=== PATIENT | male | born 1955 | race African-American/Black ===

== ENCOUNTER 2020-08-13 17:09 | Inpatient (IN) | payer BC ==
--- OUTSIDE RECORDS SUMMARY | 2020-08-13 17:12 | XMS REPORT | Continuity of Care Document ---
:[address] [facility] t Address [address] [place] [address] Care Team Providers Name Role Phone Jemma JETER Attending Clinician Lm JETER Attending Clinician Sampson Attending Clinician Sampson Admitting Clinician Payers Payer Name Policy Type Policy Number Effective Date Expiration Date S ource Problems Condition Condition Condition Status Onset Resolution Last Treating Co mments Source Name Details Category Date Date Treatment Clinician Date COPD Diagnosis Active 2017-08-18 Mem oria EXACERBATI 3-10 21:49:00 l ON COPD 00:00: Comfort EXACERBATI 00 ON Active 8 [facility] [place] Essential Problem 2017-11-21 Me moria (primary) 13:07:13 l hypertensi [place] n on Essential (primary) hypertensi on 11/21/2017 [facility] custodial Problem 2017-11-21 Me moria (current) 13:07:13 l use of Long [place] oral term hypoglycem (current) ic drugs use of oral hypoglycem ic drugs 11/21/2017 [facility] CHRONIC Diagnosis Active 2017-08-18 Me moria OBSTRUCTIV 21:49:00 l E CHRONIC [place]aim PULMONARY OBSTRUCTIV DISEASE, U E PULMONARY DISEASE, U [facility] Problem 2017-11-21 Memor ia kidney 13:07:13 l failure, Acute Comfort unspecifie kidney d failure, unspecifie d 11/21/2017 [facility] Type 2 Problem 2017-11-21 Memor ia diabetes 13:07:13 l mellitus Type 2 Austin n without diabetes complicati mellitus ons without complicati ons 11/21/2017 [facility] Hyperlipid Problem 2017-11-21 M emoria emia, 13:07:13 l unspecifie [place] n d Hyperlipid emia, unspecifie d 11/21/2017 [facility] Nicotine Problem 2017-11-21 Mem oria dependence 13:07:13 l , Nicotine Austin n cigarettes dependence , , uncomplica cigarettes derik , uncomplica derik 11/21/2017 [facility] Anemia, Problem 2017-11-21 Deon luiz unspecifie 13:07:13 l d Anemia, Haim unspecifie d 11/21/2017 [facility] History of Past Illness Condition Condition Condition Status Onset Resolution Last Treating Co mments Source Name Details Category Date Date Treatment Clinician Date Chronic Problem 2017-2017-11-21 2017-11-21 Memoria obstructiv 3- 13:07:13 13:07:13 l e Chronic 03:23: Haim pulmonary obstructiv 01 disease e with pulmonary (acute) disease exacerbati with on (acute) exacerbati on 08/25/2017 11/21/2017 [facility] Allergies, Adverse Reactions, Alerts Allergy Allergy Status Severity Reaction(s) Onset Inactive Treating Comm ents Source Name Type Date Date Clinician No Known DA Active U 2013-06 [facility] 07-12 [facility] Social History Social Habit Start Date Stop Date Quantity Comments Source Sex Assigned At [facility] Social History 2017-08-13 2017-08-13 [facility] александр 17:52:31 17:52:31 Medications Ordered Filled Start Stop Current Ordering Indication Dosage Frequency Signature Comments Components Source Medication Medication Date Date Medication? Clinician (SIG) Name Name Acetaminoph No See Memori a en 325 MG / 3-12 Instructio l Hydrocodone 19:26: ns, PRN Her banks Bitartrate 00 for pain, 5 MG Oral 1 tab PO Tablet Q4-6H prn [[place] pain, # 10 5/325] tab, 0 Refill(s) Linagliptin Yes 5 mg = 1 Me moria 5 MG Oral 3-12 tab, PO, l Tablet 18:03: Daily, # Comfort [Tradjenta] 00 30 tab, 3 Refill(s) Levofloxaci No 750 mg = 1 Memoria n 750 MG 3-12 tab, PO, l Oral Tablet 18:01: Q24H, X 4 H ermann [Levaquin] 00 day, # 4 tab, 0 Refill(s) predniSONE No See Memoria 10 mg oral 3-12 Special l tablet 18:01: Instructio Elena nn 00 ns, PO, Daily, 16 day regimen: 1st week - 40 mg (4 tabs) daily x 4 days, 2nd week - 30 mg (3 tabs) daily x 4 days, 3rd week - 20 mg (2 tabs) daily x 4days, 4th week - 10 mg (1 tab) daily x 4 days then stop. X16 days, #42 Tabs, X... Nebulizer Yes 1 ea, Memoria Mask Adult 3-12 MISC, PRN, l Misc/Other 18:01: PRN As Elena nn 00 directed by physician, # 12 ea, 0 Refill(s) Nebulizer Yes 1 ea, Memoria 3-12 MISC, l 18:01: ONCALL, # Haim 00 1 ea, 0 Refill(s) Albuterol Yes 3 mL, NEB, Me moria 0.833 MG/ML 312 RQ6H, PRN l / 18:01: as needed Haim Ipratropium 00 for [place] shortness 0.167 MG/ML of breath Inhalant or Solution wheezing, # 180 mL, 2 Refill(s) methylPREDN No Notes: Deon luiz ISolone 3-12 (Same l SODium 02:00: as:Solu-ME Elena nn SUCCinate 00 DROL, A-Methapre d) NS (Bolus) No 500 mL, Deon luiz IV 3-11 500 ml/hr, l 19:06: Infuse Haim 00 Over: 1 hr, Route: IV, 500, Drug form: INJ, ONCE, Priority: STAT, Dosing Weight 128.438 kg, Start date: 08/14/17 14:06:00 CDT, Stop date: 08/14/17 14:06:00 CDT Hydrochloro No Notes: Deon luiz thiazide 3-11 (Same as: l 14:00: Hydrodiuri Haim 00 l) With food. Losartan No Notes: Memoria 3-11 (Same as: l 03:00: Cozaar) Zyrtec No Notes: Memoria 3-11 (Same As: l 03:00: Zyrtec) Amlodipine No Notes: Memor ia 3-11 (Same as: l 03:00: Norvasc) atorvastati No Notes: Deon luiz n 3-11 (Same as: l 03:00: Lipitor) Metformin No Notes: Memori a 3-10 (Same as: l 22:30: Glucophage ) Take with meal methylPREDN No Notes: Deon luiz ISolone 3-10 (Same l SODium 22:00: as:Solu-ME Elena nn SUCCinate 00 DROL, A-Methapre d) Albuterol No Notes: Memori a 0.833 MG/ML 3-10 (Same as: l / 20:00: Duoneb) Ipratropium 00 [place] 0.167 MG/ML Inhalant Solution Symbicort No Notes: Memori a 160/4.5 3-10 (Same as: l inhalation 19:08: Symbicort) H ermann aerosol 00 WASTE: with Aerosol - adapter Return to Pharmacy albuterol No Notes: Memori a 90 mcg/inh 3-10 Same as: l inhalation 18:39: Ventolin Her banks aerosol 00 HFA WASTE: Aerosol - Return to Pharmacy Zyrtec Yes 10 mg, PO, Memor ia 3-10 Bedtime, 0 l 18:24: Refill(s) Amlodipine Yes 10 mg, PO, M emoria 3-10 Bedtime, 0 l 18:24: Refill(s) Hydrochloro 2018-0 No 50 mg, PO, Memoria thiazide 3-10 Bedtime, 0 l 18:24: Refill(s) Haim 00 Symbicort Yes 2 puff, Memor ia 160/4.5 3-10 INHALATION l inhalation 18:24: , BID, 0 Her banks aerosol 00 Refill(s) with adapter atorvastati Yes 40 mg = 1 M emoria n 40 mg 3-10 tab, PO, l oral tablet 18:24: Bedtime, 0 Comfort 00 Refill(s) albuterol Yes 2 puff, Memor ia 90 mcg/inh 3-10 INHALATION l inhalation 18:24: , Q4H, PRN H ermann aerosol 00 Shortness of breath, 0 Refill(s) Losartan No 100 mg, Memori a 3-10 PO, l 18:24: Bedtime, 0 Haim 00 Refill(s) Metformin No 500 mg, Memor ia 3-10 PO, Before l 18:24: Dinner, 0 Comfort 00 Refill(s) Azithromyci No 500 mg, Mem oria n 3-10 Route: l 18:00: IVPB, Haim 00 [id number], kg, Start date: 08/13/17 12:00:00 PAGEANT DIRECTOR, Duration: 3 day, Stop date: 08/15/17 12:00:00 CDT, ABX Indication : Non-PNA Respirator y Tract Infection Ceftriaxone No 1 gm, Memor ia 3-10 Route: l 18:00: IVPB, Comfort 00 [id number], kg, Start date: 08/13/17 12:00:00 PAGEANT DIRECTOR, Duration: 5 day, Stop date: 08/17/17 12:00:00 CDT, ABX Indication : Non-PNA Respirator y Tract Infection Levaquin No Notes: Memoria 3-10 (Same l 18:00: as:Levaqui Comfort 00 n) Symbicort No Notes: Memori a 160/4.5 3-10 (Same as: l inhalation 17:22: Symbicort) H ermann aerosol 00 WASTE: with Aerosol - adapter Return to Pharmacy Insulin No Notes: Memoria Lispro 3-10 (Same as: l 17:21: Humalog ) Comfort 00 Roll in palms of hands gently; Do not shake `vigorousl y. "Single Patient Use Only " WASTE: F/P - Black; E - Municipal Trash Bin Stable for 28 days at room temperatur e. Expires in days from ____Date Glucagon 2017-0 No 1 mg, Memoria 3-10 Route: IM, l 17:21: Drug form: Haim 00 PDR/INJ, PRN, kg, PRN Blood Glucose Results, Start date: 08/13/17 11:21:00 PAGEANT DIRECTOR, Duration: 30 day, Stop date: 09/12/17 12:20:00 CDT Dextrose 2017- No 12.5 gm, Memor ia 50% Syringe 3-10 25 mL, l 17:21: Route: Comfort IVP, Drug Form: INJ, kg, PRN, PRN Blood Glucose Results, Start date: 08/13/17 11:21:00 PAGEANT DIRECTOR, Duration: 30 day, Stop date: 09/12/17 12:20:00 CDT Albuterol 2017- No Notes: SEE Me moria 0.83 MG/ML 3-10 RT l Inhalant 17:20: DOCUMENTAT Her banks Solution 00 ION (Same as: Proventil) Ondansetron No Notes: Deon luiz 3-10 (Same as: l 17:17: Zofran) Comfort 00 MEDICATION WASTE Product Size: 4 mg Product Wasted: ___ mg Acetaminoph No Notes: Do M emoria en 3-10 not exceed l 17:17: 4 gm/day. Comfort 00 (Same as: Tylenol) Acetaminoph No Notes: Deon luiz en 325 MG / 3-10 (Same as: l Hydrocodone 17:17: [place] Elena nn Bitartrate 00 325/5) Do 5 MG Oral not exceed Tablet 4gm/day of acetaminop hen. Vital Signs Vital Name Observation Time Observation Value Comments Source Temperature Oral (F) 2017-08-15 16:15:00 98.3 F [facility] [place] Systolic (mm Hg) 2017-08-15 16:15:00 Deon rial Comfort Diastolic (mm Hg) 2017-08-15 16:15:00 Mem orial Comfort Respitory Rate 2017-08-15 16:15:00 Memori al Comfort Heart Rate 2017-08-15 16:15:00 [facility] Comfort Respitory Rate 2017-08-15 13:49:00 Memori al [place] Systolic (mm Hg) 2017-08-15 13:49:00 Deon rial Comfort Diastolic (mm Hg) 2017-08-15 13:49:00 Mem orial Comfort Heart Rate 2017-08-15 13:49:00 Memorial Comfort Temperature Oral (F) 2017-08-15 13:49:00 98.8 F [facility] [place] Respitory Rate 2017-08-15 13:09:00 Memori al Comfort Temperature Oral (F) 2017-08-15 10:04:00 98.1 F [facility] [place] Heart Rate 2017-08-15 10:04:00 [facility] Comfort Systolic (mm Hg) 2017-08-15 10:04:00 Deon rial Haim Diastolic (mm Hg) 2017-08-15 10:04:00 Mem orial Comfort BMI Calculated 2017-08-13 17:30:00 Memori al [place] Weight 2017-08-13 17:30:00 [facility] Comfort Height 2017-08-13 17:30:00 177.8 cm [facility] Procedures This patient has no known procedures. Plan of Care Planned Activity Planned Date Details Comments Source Future Scheduled 2021-11-[address] [facility] - Test 00:00:00 (procedure) [code = [facility] [id number]] Future Scheduled 2020-02-05 INFLUENZA VACCINE (#1) [facility] - Test 00:00:00 [code = INFLUENZA Medical Ce nter VACCINE (#1)] Future Scheduled 2019 PNEUMOCOCCAL 65+ YRS [facility] - Test 00:00:00 (1 of 1 - Medical Center [id number] PCV13) [code = PNEUMOCOCCAL 65+ YRS (1 of 1 - [id number] PCV13)] Future Scheduled [address] [facility] - Test 00:00:00 malignant neoplasm of Medica l Center colon (procedure) [code = 586712950] Encounters Start End Encounter Admission Attending Care Care Encounter Source Date/Time Date/Time Type Type Clinicians Facility Department ID 2019-01-17 2019-01-17 Office Daryl Easton BCJavon [id number] 10:22:48 10:52:48 Visit AMBULATOR [id number] Y [id number] 2019-01-17 2019-01-17 Office FREEDOM Amato [id number] 09:48:53 10:21:37 Visit Noah AMBULATOR [id number] Y [id number] 2017-08-13 2017-08-[address] [id number] 10:56:00 15:10:00 Jem Morley Results Test Description Test Time Test Comments Results Result Comments Source ELECTROLYTES 2017-08-15 103 [facility] Her banks 10:02:00 ELECTROLYTES 2017-08-15 4.1 [facility] 10:02:00 ELECTROLYTES 2017-08-15 9.2 [facility] 10:02:00 ELECTROLYTES 2017-08-15 32 [facility] 10:02:00 ELECTROLYTES 2017-08-15 9.1 [facility] 10:02:00 ELECTROLYTES 2017-08-15 50 [facility] 10:02:00 ELECTROLYTES 2017-08-15 1.65 [facility] 10:02:00 ELECTROLYTES 2017-08-15 236 [facility] 10:02:00 ELECTROLYTES 2017-08-15 34 [facility] 10:02:00 ELECTROLYTES 2017-08-15 140 [facility] 10:02:00 CHEM PANEL 2017-08-14 51 [facility] Elena nn 09:23:00 CHEM PANEL 2017-08-14 3.7 [facility] Elena nn 09:23:00 CHEM PANEL 2017-08-14 100 [facility] Elena nn 09:23:00 CHEM PANEL 2017-08-14 1.44 [facility] Elena nn 09:23:00 CHEM PANEL 2017-08-14 140 [facility] Elena nn 09:23:00 CHEM PANEL 2017-08-14 25 [facility] Elena nn 09:23:00 CHEM PANEL 2017-08-14 228 [facility] Elena nn 09:23:00 CHEM PANEL 2017-08-14 30 [facility] Elena nn 09:23:00 CHEM PANEL 2017-08-14 9.3 Memorial Leena nn 09:23:00 CHEM PANEL 2017-08-14 13.7 [facility] Elena nn 09:23:00 HEMATOLOGY 2017-08-14 0.5 [facility] Elena nn 09:23:00 HEMATOLOGY 2017-08-14 0.8 [facility] Elena nn 09:23:00 HEMATOLOGY 2017-08-14 9.3 [facility] Elena nn 09:23:00 HEMATOLOGY 2017-08-14 84.3 [facility] Elena nn 09:23:00 HEMATOLOGY 2017-08-14 6.2 [facility] Elena nn 09:23:00 HEMATOLOGY 2017-08-14 7.5 [facility] Elena nn 09:23:00 HEMATOLOGY 2017-08-14 0.1 [facility] Elena nn 09:23:00 HEMATOLOGY 2017-08-14 0.1 [facility] Elena nn 09:23:00 HEMATOLOGY 2017-08-14 205 [facility] Elena nn 09:23:00 HEMATOLOGY 2017-08-14 9.2 [facility] Elena nn 09:23:00 HEMATOLOGY 2017-08-14 8.9 [facility] Elena nn 09:23:00 HEMATOLOGY 2017-08-14 4.22 [facility] Elena nn 09:23:00 HEMATOLOGY 2017-08-14 12.3 [facility] Elena nn 09:23:00 HEMATOLOGY 2017-08-14 87.3 [facility] Elena nn 09:23:00 HEMATOLOGY 2017-08-14 36.8 [facility] Elena nn 09:23:00 HEMATOLOGY 2017-08-14 09:23:00 Test Item Value Reference Range Interpretation Comme nts MCH (test code = MCH) 29.2 pg 27.0-31.0 Memorial [id number] 09:23:0033.4[facility]annHEMATOLOGY 2017-08-14 09:23:0014.2[facility] HermannCARDIAC [id number] 21:37:19416 [facility]annCARDIAC [id number] 21:37:000.04[facility]annCARDIAC [id number] 21:37:0018[facility] HermannCARDIAC [id number] 21:37:00 9.6[facility]annCARDIAC [id number] 21:37:00 Test Item Value Reference Range Interpretation Comments CK MB Index (test 1.5 1 See_Comment [Automate d message] The code = CK MB Index) system w [employer] generated this result transmit derik reference range : <=2.5. The reference range was not used to interpr et this result as francis l/abnormal. [facility]annCARDIAC [id number] 17:33:13682Mcwkqxjj HermannCARDIAC [id number] 17:33:000.04Memorimi HermannCARDIAC [id number] 17:33:00 Test Item Value Reference Range Interpretation Comments CK MB Index (test 1.3 1 See_Comment [Automate d message] The code = CK MB Index) system w [employer] generated this result transmit derik reference range : <=2.5. The reference range was not used to interpr et this result as francis l/abnormal. [facility]annCARDIAC [id number] 17:33:009.8[facility]
--- NOTE | 2020-08-13 18:08 | RAD REPORT ---
EXAM DESCRIPTION: Deanna Single View08/13/2020 6:00 pm CLINICAL HISTORY: Shortness of breath COMPARISON: July 2020 FINDINGS: The lungs appear clear of acute infiltrate. The heart is mildly to moderately enlarged IMPRESSION: No acute abnormalities displayed
[2020-08-13] MEDS ORDERED: HYDROCODONE/APAP 7.5/325 MG TAB ONE (18:15)
[2020-08-13 18:48] LABS: Absolute Lymphocytes (CBC) 1.1 K/uL (0.7-4.9); Basophils % 0.8 % (0-1.3); Lymphocytes % 21.3 % (15.3-44.8); MPV 9.2 fL (7.6-11.3); RBC Red Blood Cell Count 4.77 M/uL (4.33-5.43)
[2020-08-13 18:53] LABS: Protime INR 1.03
[2020-08-13 19:12] LABS: Albumin 3.5 g/dL (3.4-5.0); Bilirubin Direct 0.2 mg/dL (0-0.2); Bilirubin Total 0.7 mg/dL (0.2-1.0); Potassium 3.9 mmol/L (3.5-5.1); Protein, Total 7.2 g/dL (6.4-8.2); Troponin (Emerg Dept Use Only) 0.06 ng/mL (0.0-0.045)
--- NOTE | 2020-08-13 20:02 | ER ---
Nurse's Notes [facility] Name: Noe Painting Age: 65 yrs Sex: Male : 1955 Arrival Date: 08/13/2020 Time: 17:18 Bed 7 Private MD: Diagnosis: Hypoxia;elevated troponin Presentation: 08/13 17:18 Chief complaint: Patient states: dr. jackson sent me over here to run test and it says tw2 needs admission, i feel sob, 3 weeks ago, i went a month without taking the water pill and here i am. Coronavirus screen: difficulty breathing, Client presents with at least one sign or symptom that may indicate coronavirus-19. Standard/surgical mask placed on the client. Provider contacted for isolation considerations. Ebola Screen: Patient denies travel to an Ebola-affected area in the 21 days before illness onset. Initial Sepsis Screen: Does the patient meet any 2 criteria? RR > 20 per min. HR > 90 bpm. Does the patient have a suspected source of infection? No. Patient's initial sepsis screen is negative. Risk Assessment: Do you want to hurt yourself or someone else? Patient reports no desire to harm self or others. Onset of symptoms was August 13, 2020. 17:18 Method Of Arrival: Ambulatory tw2 17:18 Acuity: LENIN 2 tw2 17:[address] Jackson sent here. tw2 Triage Assessment: 17:18 General: Appears in no apparent distress. obese, well groomed, Behavior is calm, tw2 cooperative, appropriate for age. Pain: Denies pain. Respiratory: Reports shortness of breath at rest on exertion Onset: The symptoms/episode began/occurred weeks now, the patient has moderate shortness of breath. Historical: - Allergies: 17:25 No Known Allergies; tw2 - Home Meds: 17:25 Lipitor Oral once daily [Active]; losartan Oral once daily [Active]; Symbicort 160-4.5 tw2 mcg/actuation inhalation HFAA 2 puffs 2 times per day [Active]; Metformin Oral [Active]; Lasix Oral [Active]; - PMHx: 17:25 Asthma; Diabetes - NIDDM; Hypertension; tw2 - Immunization history:: Adult Immunizations. - Social history:: Smoking status: . Screenin:32 Abuse screen: Denies threats or abuse. Nutritional screening: No deficits noted. jd3 Tuberculosis screening: No symptoms or risk factors identified. Fall Risk Ambulatory Aid- None/Bed Rest/Nurse Assist (0 pts). Gait- Normal/Bed Rest/Wheelchair (0 pts) Mental Status- Oriented to own ability (0 pts). Total Oconnell Fall Scale indicates No Risk (0-24 pts). Assessment: 18:17 General: Appears in no apparent distress. comfortable, Behavior is calm, cooperative, jd3 appropriate for age. Pain: Complains of pain in right lateral anterior chest Quality of pain is described as aching, squeezing, Aggravated by repositioning. Neuro: Level of Consciousness is awake, alert, obeys commands, Oriented to person, place, time, situation. Cardiovascular: Reports chest pain, Capillary refill < 3 seconds Patient's skin is warm and dry. Rhythm is irregular. Respiratory: Reports shortness of breath Airway is patent Respiratory effort is even, unlabored, Respiratory pattern is symmetrical, tachypnea Denies cough. GI: No signs and/or symptoms were reported involving the gastrointestinal system. : No signs and/or symptoms were reported regarding the genitourinary system. EENT: No signs and/or symptoms were reported regarding the EENT system. Derm: Skin is intact, Skin is dry, Skin is normal, Skin temperature is warm. Musculoskeletal: Circulation, motion, and sensation intact. Range of motion: intact in all extremities. 19:41 Reassessment: Patient and/or family updated on plan of care and expected duration. Pain ea level reassessed. Patient is alert, oriented x 3, equal unlabored respirations, skin warm/dry/pink. Patient states feeling better. 22:41 Reassessment: Patient and/or family updated on plan of care and expected duration. Pain ea level reassessed. Patient is alert, oriented x 3, equal unlabored respirations, skin warm/dry/pink. Report given to Ana Lilia ATKINS. Pt admitted to second floor. Left ED via wheelchair per ED. Pt tolerating well. Vital Signs: 17:18 BP 112 / 84; Pulse 98; Resp 22; Temp 97.9(TE); Pulse Ox 89% on R/A; Weight 136.08 kg tw2 (R); Height 5 ft. 10 in. (177.80 cm); 17:26 Pulse Ox 100% on 3 lpm NC; tw2 18:20 Pulse 99; Resp 24 S; Pulse Ox 98% on 3 lpm NC; jd3 19:41 BP 124 / 72; Pulse 86; Resp 20; Pulse Ox 95% on R/A; ea 22:42 BP 120 / 70; Pulse 87; Resp 20; Pulse Ox 98% 2 lpm ; ea 17:18 Body Mass Index 43.05 (136.08 kg, 177.80 cm) tw2 17:26 provider notified of improvement at this time on NC tw2 ED Course: 17:18 Patient arrived in ED. mr 17:21 Triage completed. tw2 17:25 Arm band placed on. tw2 17:29 Concetta Fiore [facility]-C [facility] kb 17:29 Mahesh Carranza MD is Attending Physician. kb 17:29 Home Jeffers RN is Primary Nurse. jd3 17:32 Patient has correct armband on for positive identification. Bed in low position. Call jd3 light in reach. Side rails up X 1. Pulse ox on. NIBP on. 17:55 Inserted saline lock: 20 gauge in left antecubital area, using aseptic technique. Blood jd3 collected. 18:39 CORONAVIRUS Sent. mh5 18:39 COVID-19 : Document "Date of Symptom Onset" if Symptomatic. Sent. mh5 18:40 COVID swab sent to lab. mh5 20:01 Henry Huntley MD is Hospitalizing Provider. kb 20:17 Justo Valencia is Hospitalizing Provider. kb 22:31 Inserted saline lock: 22 gauge in right forearm, using aseptic technique. ds4 22:41 No provider procedures requiring assistance completed. Patient admitted, IV remains in ea place. Administered Medications: 18:16 Drug: Lowell (7.5 mg-325 mg) 1 tabs Route: PO; jd3 19:15 Follow up: Response: No adverse reaction; RASS: Alert and Calm (0) jd3 Outcome: 20:01 Decision to Hospitalize by Provider. kb 22:41 Admitted to Med/surg accompanied by tech, room 221. ea 22:41 Condition: stable 22:41 Instructed on the need for admit, Demonstrated understanding of instructions. 22:43 Patient left the ED. ea Signatures: Concetta Fiore FNP-C FNP-Ckb RainesLynette mathew Donovan ds4 Zulema Cedillo, RN RN tw2 rCystal Bowen 5 Deandra Curran, RN RN ea Home Jeffers RN RN jd3
--- NOTE | 2020-08-13 20:02 | EDPHYS ---
Physician Documentation [facility] Name: Noe Painting Age: 65 yrs Sex: Male : 1955 Arrival Date: 08/13/2020 Time: 17:18 Bed 7 Private MD: ED Physician Mahesh Carranza HPI: 08/13 21:18 This 65 yrs old Black Male presents to ER via Ambulatory with complaints of Breathing kb Difficulty. 21:18 The patient has shortness of breath at rest. Onset: The symptoms/episode began/occurred kb last week. Duration: The symptoms are continuous. The patient's shortness of breath is aggravated by exertion. Associated signs and symptoms: Pertinent positives: lower extremity swelling. Severity of symptoms: At their worst the symptoms were moderate in the emergency department the symptoms are unchanged. The patient has not experienced similar symptoms in the past. The patient has not recently seen a physician. Pt reports he has been getting short of breath on exertion and retaining fluid to lower extremities. States it had been going on for a while then he realized he forgot to put his hctz pills in his pill xiao so he has missed it for the last 3 weeks. States he started taking it again when he realized, but he had already scheduled an appt with Dr Jackson so he went today. States oxygen has been running 86-88% at home. Dr Jackson sent him in and told him he needed to be admitted for further testing. Historical: - Allergies: 17:25 No Known Allergies; tw2 - Home Meds: 17:25 Lipitor Oral once daily [Active]; losartan Oral once daily [Active]; Symbicort 160-4.5 tw2 mcg/actuation inhalation HFAA 2 puffs 2 times per day [Active]; Metformin Oral [Active]; Lasix Oral [Active]; - PMHx: 17:25 Asthma; Diabetes - NIDDM; Hypertension; tw2 - Immunization history:: Adult Immunizations. - Social history:: Smoking status: . ROS: 20:02 Constitutional: Negative for fever, chills, and weight loss, Abdomen/GI: Negative for kb abdominal pain, nausea, vomiting, diarrhea, and constipation, MS/Extremity: Negative for injury and deformity, Skin: Negative for injury, rash, and discoloration, Neuro: Negative for headache, weakness, numbness, tingling, and seizure. 20:02 Cardiovascular: Positive for edema, Negative for chest pain, orthopnea, palpitations, paroxysmal nocturnal dyspnea. 20:02 Respiratory: Positive for dyspnea on exertion, shortness of breath. Exam: 20:02 Constitutional: This is a well developed, well nourished patient who is awake, alert, kb and in no acute distress. Head/Face: Normocephalic, atraumatic. Chest/axilla: Normal chest wall appearance and motion. Cardiovascular: Regular rate and rhythm with a normal S1 and S2. No gallops, murmurs, or rubs. No pulse deficits. Abdomen/GI: Soft, non-tender, with normal bowel sounds. No distension. No guarding or rebound. No evidence of tenderness throughout. Skin: Warm, dry with normal turgor. Normal color with no rashes, no lesions, and no evidence of cellulitis. MS/ Extremity: Pulses equal, no cyanosis. Neurovascular intact. Full, normal range of motion. Neuro: Awake and alert, GCS 15, oriented to person, place, time, and situation. Cranial nerves II-XII grossly intact. Moves all extremities. Sensory grossly intact. Cerebellar exam normal. Normal gait. 20:02 Cardiovascular: Edema: pedal edema, that is mild. 20:02 Respiratory: mild respiratory distress is noted, Respirations: labored breathing, that is mild, Breath sounds: decreased breath sounds, that are mild, are located in both bases. Vital Signs: 17:18 BP 112 / 84; Pulse 98; Resp 22; Temp 97.9(TE); Pulse Ox 89% on R/A; Weight 136.08 kg tw2 (R); Height 5 ft. 10 in. (177.80 cm); 17:26 Pulse Ox 100% on 3 lpm NC; tw2 18:20 Pulse 99; Resp 24 S; Pulse Ox 98% on 3 lpm NC; jd3 19:41 BP 124 / 72; Pulse 86; Resp 20; Pulse Ox 95% on R/A; ea 22:42 BP 120 / 70; Pulse 87; Resp 20; Pulse Ox 98% 2 lpm ; ea 17:18 Body Mass Index 43.05 (136.08 kg, 177.80 cm) tw2 17:26 provider notified of improvement at this time on NC tw2 MDM: 17:29 Patient medically screened. kb 20:00 Data reviewed: vital signs, nurses notes. Data interpreted: Pulse oximetry: on room air kb is 89 %. Interpretation: hypoxia. Counseling: I had a detailed discussion with the patient and/or guardian regarding: the historical points, exam findings, and any diagnostic results supporting the discharge/admit diagnosis, lab results, radiology results, the need for further work-up and treatment in the hospital. Physician consultation: Jordin PATTERSON was contacted at 20:00, regarding admission, to the telemetry unit. patient's condition. 08/13 17:39 Order name: Basic Metabolic Panel 08/13 17:39 Order name: CBC with Diff 08/13 17:39 Order name: LFT's 08/13 17:39 Order name: Magnesium kb 08/13 17:39 Order name: NT PRO-BNP 08/13 17:39 Order name: PT-INR 08/13 17:39 Order name: Troponin (emerg Dept Use Only) 08/13 18:09 Order name: COVID-19 : Document "Date of Symptom Onset" if Symptomatic. 08/13 18:35 Order name: CORONAVIRUS EDSD 08/13 18:51 Order name: CBC with Automated Diff; Complete Time: 18:54 EDSD 08/13 19:12 Order name: Basic Metabolic Panel; Complete Time: 19:16 EDSD 08/13 19:12 Order name: Liver (Hepatic) Function; Complete Time: 19:16 EDSD 08/13 19:12 Order name: Troponin (Emerg Dept Use Only); Complete Time: 19:16 EDSD 08/13 19:12 Order name: NT PRO-BNP; Complete Time: 19:16 EDSD 08/13 17:39 Order name: XRAY Chest (1 view) 08/13 17:39 Order name: EKG; Complete Time: 17:41 kb 08/13 17:39 Order name: Cardiac monitoring; Complete Time: 18:16 kb 08/13 17:39 Order name: EKG - Nurse/Tech; Complete Time: 18:16 kb 08/13 17:39 Order name: IV Saline Lock; Complete Time: 17:55 kb 08/13 17:39 Order name: Labs collected and sent; Complete Time: 17:55 kb 08/13 17:39 Order name: O2 Per Protocol; Complete Time: 17:43 kb 08/13 17:39 Order name: O2 Sat Monitoring; Complete Time: 17:43 kb 08/13 18:07 Order name: Labs - recollect needed: recollect all labs; Complete Time: 18:40 bd 08/13 18:08 Order name: RAD; Complete Time: 18:08 EDMS 08/13 19:12 Order name: Magnesium; Complete Time: 19:16 EDMS 08/13 19:36 Order name: SARS-COV-2 RT PCR; Complete Time: 19:43 EDMS 08/13 19:43 Order name: Protime (+INR); Complete Time: 19:43 EDMS Administered Medications: 18:16 Drug: [place] (7.5 mg-325 mg) 1 tabs Route: PO; jd3 19:15 Follow up: Response: No adverse reaction; RASS: Alert and Calm (0) jd3 Disposition: 08/13/20 20:01 Hospitalization ordered by Justo Valencia for Observation. Preliminary diagnosis are Hypoxia, elevated troponin. - Bed requested for Telemetry/MedSurg (observation). - Status is Observation. ea - Condition is Stable. - Problem is new. - Symptoms are unchanged. Addendum: 08/15/2020 19:05 Co-signature as Attending Physician, Mahesh Carranza MD. r n Signatures: Dispatcher [employer] Concetta Andre FNP-C TAX ADJUSTER-Cathi Prakash Edgar, RN Mahesh Foley MD MD rn Wise, Tara RN MILLY tw2 Deandra Cruran RN RN ea Davies, Jonathon RN RN jd3 Corrections: (The following items were deleted from the chart) 08/13 20:02 20:00 Data interpreted: Pulse oximetry: on room air is 89 %. Interpretation: normal. kb kb 20:17 20:01 Hospitalization Ordered by Henry Hunltey MD for Observation. Preliminary kb diagnosis is Hypoxia; elevated troponin. Bed requested for Telemetry/MedSurg (observation). Status is Observation. Condition is Stable. Problem is new. Symptoms are unchanged. kb 21:39 20:17 08/13/2020 20:01 Hospitalization Ordered by uJsto Valencia for Observation. em Preliminary diagnosis is Hypoxia; elevated troponin. Bed requested for Telemetry/MedSurg (observation). Status is Observation. Condition is Stable. Problem is new. Symptoms are unchanged. kb 22:43 21:39 08/13/2020 20:01 Hospitalization Ordered by Justo Valencia for Observation. ea Preliminary diagnosis is Hypoxia; elevated troponin. Bed requested for Telemetry/MedSurg (observation). Status is Observation. Condition is Stable. Problem is new. Symptoms are unchanged. em
--- NOTE | 2020-08-13 21:30 | P.HP ---
Certification for Inpatient Patient admitted to: Observation With expected LOS: <2 Midnights Patient will require the following post-hospital care: None Practitioner: I am a practitioner with admitting privileges, knowledge of patient current condition, hospital course, and medical plan of care. Services: Services provided to patient in accordance with Admission requirements found in Title 42 Section 412.3 of the Code of Federal Regulations <Jordin Laguna - Last Filed: 08/13/20 23:11> Patient History Date of Service: 08/13/20 Primary Care Provider: Dr. Duran Reason for admission: hypoxia, volume overload History of Present Illness: Mr. Painting is a 65 yo male with asthma, HTN, DM, HLD, newly diagnosed BRIAN not on CPAP sent here today by Dr. Jackson for hypoxia, sats 89% on arrival. Three weeks ago, he accidentally stopped taking his HCTZ. For the past week, he has had increasing SOB, ROJAS, and swelling in his legs. He tried to double up on HCTZ then with no relief of symptoms. He reports palpitations and occasional wheezing. He denies PND, orthopnea, cough, and chest pain. He is not on home O2. He quit smoking 3 years ago and is not aware of a previous diagnosis for COPD. Reports he has never had a cardiac workup or ECHO. Initial troponin 0.06. BNP 289. GFR 65. CXR normal. EKG in sinus rhythm with premature supraventricular complexes - Past Medical/Surgical History Diabetic: Yes -: Severe asthma -: HTN -: DM -: HLD -: BRIAN, not on CPAP -: back surgery - Family History Mother -: Diabetes Father -: Heart disease - Social History Smoking Status: Former smoker Alcohol use: No CD- Drugs: No Caffeine use: Yes Place of Residence: Home <Felisha Lagunajluis Weathers - Last Filed: 08/13/20 23:11> Date of Service: 08/14/20 <kait jeter - Last Filed: 08/14/20 11:52> Allergies No Known Allergies Allergy (Verified 08/14/20 00:03) Home Medications: Albuterol Inhaler [Ventolin Inhaler*] 2 puff IH Q6HP PRN 08/14/20 Atorvastatin Calcium 40 mg PO BEDTIME 08/14/20 Budesonide/Formoterol Fumarate [Symbicort 160-4.5 Mcg Inhaler] 2 puff IH BID 08/14/20 Eszopiclone [Lunesta] 2 mg PO BEDTIME 08/14/20 Losartan Potassium [Cozaar] 100 mg PO DAILY 08/14/20 Metformin HCl 500 mg PO BIDWM 08/14/20 [place]-3/Dha/Epa/Fish Oil [Fish Oil EC 1,000 mg Softgel] 1,000 mg PO DAILY 08/14/20 Tamsulosin HCl 0.4 mg PO DAILY 08/14/20 Review of Systems General: Unremarkable Eyes: Unremarkable ENT: Unremarkable Respiratory: Shortness of Breath, SOB with Excertion, Wheezing, As per HPI Cardiovascular: Palpitations, Edema, As per HPI Gastrointestinal: Unremarkable Genitourinary: Unremarkable Musculoskeletal: Unremarkable Integumentary: Unremarkable Neurological: Unremarkable <Jordin Laguna - Last Filed: 08/13/20 23:11> Physical Examination - Vital Signs Temperature: 97.9 F Blood Pressure: 112/84 Pulse: 98 Respirations: 22 Pulse Ox (%): 89 - Physical Exam General: Alert, In no apparent distress, Oriented x3, Cooperative HEENT: Atraumatic, Normocephalic, PERRLA, Mucous membr. moist/pink, EOMI, Sclerae nonicteric Neck: Supple, 2+ carotid pulse no bruit Respiratory: Clear to auscultation bilaterally, Normal air movement Cardiovascular: Normal pulses, Edema, Irregular heart rate/rhythm, Abnormal S1 S2 Capillary refill: <2 Seconds Gastrointestinal: Normal bowel sounds, Soft and benign, Non-distended, No ascites, No tenderness, No masses, No rebound, No guarding Musculoskeletal: No clubbing, No swelling, No contractures, No erythema, No tenderness, No warmth Integumentary: No rashes, No breakdown, No significant lesion, No tenderness/swelling, No erythema, No warmth, No cyanosis Neurological: Normal speech, Normal strength at 5/5 x4 extr, Normal tone, Sensation intact, Cranial nerves 3-12 intact, Normal affect Lymphatics: No axilla or inguinal lymphadenopathy - Studies Laboratory Data (last 24 hrs) 08/13/20 18:38: PT 11.8, INR 1.03 08/13/20 18:38: WBC 5.20, Hgb 13.3 L, Hct 41.0, Plt Count 166 08/13/20 18:38: Sodium 142, Potassium 3.9, BUN 18, Creatinine 1.34 H, Glucose 82, Magnesium 2.0, Total Bilirubin 0.7, AST 15, ALT 26, Alkaline Phosphatase 77 <Jordin Laguna - Last Filed: 08/13/20 23:11> - Studies Laboratory Data (last 24 hrs) 08/13/20 18:38: PT 11.8, INR 1.03 08/13/20 18:38: WBC 5.20, Hgb 13.3 L, Hct 41.0, Plt Count 166 08/13/20 18:38: Sodium 142, Potassium 3.9, BUN 18, Creatinine 1.34 H, Glucose 82, Magnesium 2.0, Total Bilirubin 0.7, AST 15, ALT 26, Alkaline Phosphatase 77 <kait jeter - Last Filed: 08/14/20 11:52> Assessment and Plan - Problems (Diagnosis) (1) Asthma Current Visit: Yes Status: Acute Plan: asthma exacerbation not likely due to chronic onset. currently stable. continue home medications - symbicort, albuterol. patient not aware of any previous diagnosis of COPD. smoked up until 3 years ago. Qualifiers: Asthma severity: unspecified severity Asthma persistence: unspecified Asthma complication type: unspecified Qualified Code(s): J45.909 - Unspecified asthma, uncomplicated (2) HTN (hypertension) Current Visit: Yes Status: Acute Plan: BP currently well controlled. continue to monitor. Qualifiers: Hypertension type: essential hypertension Qualified Code(s): I10 - Essential (primary) hypertension (3) Diabetes mellitus Current Visit: Yes Status: Acute Plan: mild sliding scale and ACHS checks. A1c pending. will continue to monitor. Qualifiers: Diabetes mellitus type: type 2 Diabetes mellitus residential insulin use: without exterminator termite use Diabetes mellitus complication status: with kidney complications Diabetes mellitus complication detail: with chronic kidney disease Chronic kidney disease stage: stage 2 (mild) Qualified Code(s): E11.22 - Type 2 diabetes mellitus with diabetic chronic kidney disease; N18.2 - Chronic kidney disease, stage 2 (mild) (4) Hyperlipidemia Current Visit: Yes Status: Acute Plan: reconcile home medications and continue. lipid panel pending. stable. Qualifiers: Hyperlipidemia type: unspecified Qualified Code(s): E78.5 - Hyperlipidemia, unspecified (5) BRIAN (obstructive sleep apnea) Current Visit: Yes Status: Acute Plan: patient recently diagnosed with BRIAN with CPAP requirements, hasn't yet arrived at house. respiratory consult placed so patient can have CPAP overnight here. (6) Volume overload Current Visit: Yes Status: Acute Plan: given 20mg IV lasix BID. patient has doubled up on his HCTZ over the last 24 hours so will go slow. Still with 2+ pitting edema in ankles. with abnormal EKG and troponin of 0.06 and clinical picture will obtain ECHO. cardiology consulted. (7) Hypoxia Current Visit: Yes Status: Acute Plan: currently sats at 98% on 4L NC. will continue to monitor. Discharge Plan: Home Plan to discharge in: 24 Hours - Advance Directives Does patient have a Living Will: No Does patient have a Durable POA for Healthcare: No - Code Status/Comfort Care Code Status Assessed: Yes (full code) Critical Care: No Time Spent Managing Pts Care (In Minutes): 70 <Jordin Laguna - Last Filed: 08/13/20 23:11> Physician Review: Patient Assessed, Agree with Above Assessment and Plan Physician Review Additional Text: COPD exacerbation CHF exacerbation. Acute respiratory failure with hypoxia. Plan: IV Lasix IV steroid Bronchodilators Pulmonary consult <kait jeter - Last Filed: 08/14/20 11:52>
[2020-08-13] MEDS ORDERED: ALPRAZOLAM 0.25 MG TABLET PO PRN (22:47)
[2020-08-13] MEDS ORDERED: ACETAMINOPHEN 500 MG TAB PO PRN (22:47)
[2020-08-13] MEDS ORDERED: ONDANSETRON 4 MG/2 ML VIAL IV PRN (22:47)
[2020-08-14 00:03] VITALS: BMI 43.8
[2020-08-14 00:15] LABS: Thyroid Stimulating Hormone 1.19 uIU/mL (0.360-3.740)
[2020-08-14 00:52] LABS: Urine Appearance CLEAR; Urine Bilirubin NEGATIVE (NEG); Urine Blood NEGATIVE (NEG); Urine Color YELLOW; Urine Glucose NEGATIVE (NEG); Urine Microscopic Reflex ORDER UMIC; Urine Protein 2+ (NEG); Urine Specific Gravity 1.025 (1.005-1.030); Urine pH 5.5 (5.0-7.0)
[2020-08-14 01:29] LABS: Calcium Oxalate Crystals- Ur MANY (NONE SEEN); Urine Bacteria <20 /HPF (NONE SEEN); Urine RBC NONE SEEN /HPF (NONE SEEN); Urine Trichomonas PRESENT (NONE SEEN)
--- NOTE | 2020-08-14 05:12 | EKG ---
Test Date: 2020-08-13 Test Time: 18:11:20 Stewardesses Teacher: MAMI MEASUREMENT RESULTS: Intervals: Rate: 98 WY: 144 QRSD: 100 QT: 366 QTc: 467 Jackson: P: 57 WY: 144 QRS: -81 T: 29 INTERPRETIVE STATEMENTS: Sinus rhythm with premature supraventricular complexes and with occasional premature ventricular complexes Left axis deviation Cannot rule out Anterior infarct, age undetermined Abnormal ECG Compared to ECG 07/05/2016 15:03:00 Atrial premature complex(es) now present Ventricular premature complex(es) now present Myocardial infarct finding now present Sinus arrhythmia no longer present Incomplete right bundle-branch block no longer present ST (T wave) deviation no longer present Possible ischemia no longer present Electronically Signed On 08-14-20 05:11:10 LUMBER MATERIAL HANDLER by Rosales Bernal
[2020-08-14 06:21] LABS: Albumin 3.2 g/dL (3.4-5.0); Bilirubin Total 0.5 mg/dL (0.2-1.0); Potassium 4.5 mmol/L (3.5-5.1); Protein, Total 6.8 g/dL (6.4-8.2); Troponin I 0.07 ng/mL (0.0-0.045)
[2020-08-14 06:29] LABS: Absolute Lymphocytes (CBC) 0.7 K/uL (0.7-4.9); Basophils % 0.5 % (0-1.3); Lymphocytes % 13.5 % (15.3-44.8); MPV 9.7 fL (7.6-11.3); RBC Red Blood Cell Count 4.58 M/uL (4.33-5.43)
[2020-08-14] MEDS: INSULIN -REGULAR HUMAN 50 UNIT/0.5 ML ML SQ SCH ×4 (07:30→21:22)
--- NOTE | 2020-08-14 08:51 | P.PN ---
Subjective Date of Service: 08/14/20 Primary Care Provider: Dr. Duran Chief Complaint: Respiratory failure Subjective: Improving (Patient is improving he was admitted from my office with significant hypoxemia got worse to the past week compliant with medication former smoker) Review of Systems General: Weakness Respiratory: Shortness of Breath Physical Examination - Vital Signs Temperature: 98.1 F Blood Pressure: 124/68 Pulse: 90 Respirations: 20 Pulse Ox (%): 95 - Physical Exam General: Alert, Oriented x3, Mild distress Respiratory: Clear to auscultation bilaterally, Diminished Cardiovascular: No edema, Regular rate/rhythm - Studies Laboratory Data (last 24 hrs) 08/13/20 18:38: PT 11.8, INR 1.03 08/13/20 18:38: WBC 5.20, Hgb 13.3 L, Hct 41.0, Plt Count 166 08/13/20 18:38: Sodium 142, Potassium 3.9, BUN 18, Creatinine 1.34 H, Glucose 82, Magnesium 2.0, Total Bilirubin 0.7, AST 15, ALT 26, Alkaline Phosphatase 77 Assessment & Plan - Problems (Diagnosis) (1) Respiratory failure Current Visit: Yes Status: Acute Plan: Patient is 65 years of age admitted with respiratory failure probably acute on chronic noncompliance with medication differential diagnosis include obstructive airways disease heart failure obstructive sleep apnea patient is morbidly obese will need bronchodilators steroids room-air arterial blood gases very hypoxic rule out PE renal function has improved resume his home medications the need home oxygen final signs otherwise stable patient's BNP is low continue with Lasix patient had a sleep study ordered CPAP is pending Qualifiers: Chronicity: unspecified
[2020-08-14] MEDS ORDERED: ALBUTEROL 2.5 MG/3 ML NEB SOL NEB PRN (09:41)
[2020-08-14] MEDS: ARFORMOTEROL TARTRATE 15 MCG/2 ML VIAL.NEB NEB SCH ×2 (10:20→22:12)
--- NOTE | 2020-08-14 10:29 | RAD REPORT ---
EXAM DESCRIPTION: CT - Chest Angio - 08/14/2020 9:57 am CLINICAL HISTORY: Rule out PE, shortness of breath portable August 13 COMPARISON: Chest Single View dated 08/13/2020 TECHNIQUE: Dynamically enhanced 3 mm thick images of the chest were obtained during administration o f approximately 150mL Isovue 370 IV contrast. Coronal and oblique MIP reconstruction images were gene rated and reviewed. Exam utilizes a protocol to evaluate the pulmonary arterial tree. All CT scans are performed using dose optimization technique as appropriate and may include automated exposure control or mA/KV adjustment according to patient size. FINDINGS: No pulmonary emboli are identified. Far peripheral branch assessment is limited due to mot ion. Embolic disease is not suspected. The aorta as imaged shows no acute or suspicious finding. No pericardial thickening or effusion. Hear t size is upper normal to slightly enlarged. No consolidation or focal mass. Interstitial pattern is accentuated by motion. Minimal edema or infil trate could be masked. No pleural effusion or pleural thickening. No mediastinal or hilar suspicious masses. No chest wall masses or abnormal axillary lymphadenopathy. IMPRESSION: No pulmonary emboli identified. No mass or consolidations seen. Interstitial pattern is accentuated by motion potentially masking min imal edema or infiltrate.
[2020-08-14] MEDS: FUROSEMIDE 20 MG/ 2ML VIAL IV SCH ×2 (10:46→16:30)
[2020-08-14] MEDS: ENOXAPARIN 40 MG/0.4 ML SQ SCH (10:47)
[2020-08-14] MEDS: METHYLPREDNISOLONE 125 MG INJ IV SCH ×2 (10:47→21:21)
[2020-08-14] MEDS: TAMSULOSIN 0.4 MG SR CAP PO SCH (10:47)
[2020-08-14 11:02] LABS: Arterial Blood Carboxyhemoglob 1.3 % (0-1.5); Blood Gas Oxyhemoglobin 80.9 % (94-97); Blood O2 Saturation 82.7 % (92-98.5)
--- NOTE | 2020-08-14 11:56 | P.PN ---
Subjective Date of Service: 08/14/20 Primary Care Provider: Dr. Duran Chief Complaint: Respiratory failure Patient states he feels better than yesterday. He is maintained on 2 L oxygen by nasal cannula. He is currently not orthopneic. Physical Examination - Vital Signs Temperature: 98.1 F Blood Pressure: 104/57 Pulse: 91 Respirations: 20 Pulse Ox (%): 95 - Physical Exam General: In no apparent distress, Obese HEENT: PERRLA, Mucous membr. moist/pink, EOMI, Sclerae nonicteric Neck: Supple, JVD not distended Respiratory: Diminished (Bilateral), Expiratory wheezes (Mild scattered expiratory wheezes.) Cardiovascular: No edema, Regular rate/rhythm, Normal S1 S2 Capillary refill: <2 Seconds Gastrointestinal: Normal bowel sounds, Soft and benign, Non-distended, No tenderness Musculoskeletal: No swelling, No tenderness Integumentary: No rashes, No erythema Neurological: Normal strength at 5/5 x4 extr, Cranial nerves 3-12 intact - Studies Laboratory Data (last 24 hrs) 08/13/20 18:38: PT 11.8, INR 1.03 08/13/20 18:38: WBC 5.20, Hgb 13.3 L, Hct 41.0, Plt Count 166 08/13/20 18:38: Sodium 142, Potassium 3.9, BUN 18, Creatinine 1.34 H, Glucose 82, Magnesium 2.0, Total Bilirubin 0.7, AST 15, ALT 26, Alkaline Phosphatase 77 Assessment And Plan - Current Problems (Diagnosis) (1) Acute exacerbation of CHF (congestive heart failure) Current Visit: Yes Status: Acute (2) Acute respiratory failure with hypoxia Current Visit: Yes Status: Acute (3) Morbid obesity Current Visit: Yes Status: Acute (4) Diabetes mellitus Current Visit: Yes Status: Acute Qualifiers: Diabetes mellitus type: type 2 Diabetes mellitus jail insulin use: without terminal computer operator use Diabetes mellitus complication status: with kidney complications Diabetes mellitus complication detail: with chronic kidney disease Chronic kidney disease stage: stage 2 (mild) Qualified Code(s): E11.22 - Type 2 diabetes mellitus with diabetic chronic kidney disease; N18.2 - Chronic kidney disease, stage 2 (mild) (5) HTN (hypertension) Current Visit: Yes Status: Acute Qualifiers: Hypertension type: essential hypertension Qualified Code(s): I10 - Essential (primary) hypertension (6) COPD exacerbation Onset Date: 07/06/16 Current Visit: No Status: Acute - Plan Pulmonology input appreciated. Continue IV Lasix. Scheduled bronchodilators-Brovana. Albuterol p.r.n. IV Solu-Medrol Daily weight, intake and output charting. Pulmonary to follow Titrate oxygen. Home oxygen evaluation in a.m.
[2020-08-14] MEDS: LOSARTAN POTASSIUM 50 MG TABLET PO SCH (12:05)
--- NOTE | 2020-08-14 12:11 | RAD REPORT ---
EXAM DESCRIPTION: RAD - Chest Pa And Lat (2 Views) - 08/14/2020 11:44 am CLINICAL HISTORY: Shortness of breath respiratory failure COMPARISON: Portable August 13, two view July 30 TECHNIQUE: Frontal and lateral views of the chest were obtained. FINDINGS: The lungs are slightly better inflated than the comparison portable study. No peripheral c onsolidation or mass. Interstitial markings are prominent and there is some mild hazy alveolar opacif ication. Pattern is not substantially different. Mild edema or infiltrate can be masked. No clearly p rogressive process. Heart size is prominent but stable. Central vasculature within normal limits. No pleural effusion or pneumothorax seen. No acute bony finding noted. No aortic abnormality. IMPRESSION: Prominent interstitial opacification and they had alveolar opacity not substantially dif ferent from comparison imaging. No mass or consolidations seen. Interstitial edema and infiltrate can be masked by the chronic patter n.
--- NOTE | 2020-08-14 14:33 | ECHO ---
HEIGHT: 5 ft 10 in WEIGHT: 305 lb 4.8 oz DATE OF STUDY: 08/14/[address]: Petros Jackson MD 2-DIMENSIONAL: YES M.MODE: YES DOPPLER: YES COLOR FLOW: YES TDS: NO PORTABLE: NO DEFINITY: NO BUBBLE STUDY: NO DIAGNOSIS: POSSIBLE PE CARDIAC HISTORY: CATHERIZATION: SURGERY: PROSTHETIC VALVE: PACEMAKER: MEASUREMENTS (cm) DIASTOLIC (NORMALS) SYSTOLIC (NORMALS) IVSd 1.2 (0.6-1.2) LA Diam 4.5 (1.9-4.0) LVEF 61% LVIDd 5.6 (3.5-5.7) LVIDs 3.7 (2.0-3.5) %FS 33% LVPWd 1.5 (0.6-1.2) Ao Diam 3.2 (2.0-3.7) 2 DIMENSIONAL ASSESSMENT: RIGHT ATRIUM: NORMAL LEFT ATRIUM: NORMAL RIGHT VENTRICLE: NORMAL LEFT VENTRICLE: NORMAL TRICUSPID VALVE: NORMAL MITRAL VALVE: PULMONIC VALVE: NORMAL AORTIC VALVE: NORMAL PERICARDIAL EFFUSION: NONE AORTIC ROOT: NORMAL LEFT VENTRICULAR WALL MOTION: NORMAL DOPPLER/COLOR FLOW: SEE BELOW. COMMENTS: NORMAL LEFT VENTRICULAR EJECTION FRACTION 55-60%. NORMAL WALL MOTION ABNORMALITY. MILD MITRAL REGURGITATION. DIASTOLIC DYSFUNCTION. TECHNOLOGIST: Benjamin MORRISON
[2020-08-14] MEDS: METFORMIN HCL 500 MG TAB PO SCH (16:30)
--- NOTE | 2020-08-14 20:19 | CON ---
Date of Consultation: 08/14/2020 Reason For Consultation: Heart failure symptoms. History Of Present Illness: This is a 65-year-old male with history of asthma, hypertension, diabete s, dyslipidemia, obstructive sleep apnea, presented to the hospital due to hypoxia. He has been comp laining of some shortness of breath and lower extremity edema. Denies, however, any orthopnea. No c hest pain and the patient denies any history of cardiac workup that was done on him in the past. Past Medical History: As outlined above in HPI. Medications: Refer to reconciliation sheet for detailed list. Allergies: NO KNOWN DRUG ALLERGIES. Social History: He is an ex-smoker. Does not drink or use any drugs. Family History: No premature coronary artery disease or cancer. Review of Systems: All systems reviewed and negative except as mentioned in the HPI. Physical Examination: Vital Signs: Temperature is 98.2, pulse is 89, breathing at 18, blood pressure is 129/69, saturating 95% with oxygen. General: This is a middle-aged male, obese, in no distress. Head and neck: Pupils are equal, reactive to light. Intact eye movements. No JVD. No cervical lym phadenopathy. Neck: Supple. Thyroid is not enlarged. Lungs: Clear to auscultation bilaterally. No rhonchi, rales, or crackles. No accessory muscle use. Heart: Regular rate and rhythm. No extra sounds. Abdomen: Soft, nontender. Bowel sounds positive. No organomegaly. No masses or hernia. No rigidi ty or rebound. Extremities: Trace edema bilaterally. No clubbing, cyanosis. Intact pulses. Skin: No rash. Neurological: Alert, awake, oriented x3. No acute focal deficits appreciated. Investigations: Troponin 0.07 and creatinine is 1.17. On echo has normal ejection fraction with carlitos stolic dysfunction. Assessment And Recommendations: Diastolic dysfunction. Normal EF. Borderline elevated troponin. I agree with diuresis, however, can increase the dose to 40 mg IV q.12 hours [facility] Please trend 2 more sets of troponin and patient will need a stress test to be done, which can b e done as an outpatient as he is not actively having any chest pain unless his troponin continues to rise. Thank you for the consult. /RISHABH Voice ID: [id number] Report ID: [id number]
[2020-08-14] MEDS ORDERED: ATORVASTATIN 40 MG TAB PO SCH (21:00)
[2020-08-15 01:57] VITALS: O2SAT 92
[2020-08-15 05:51] LABS: Absolute Lymphocytes (CBC) 0.5 K/uL (0.7-4.9); Basophils % 0.3 % (0-1.3); Lymphocytes % 7.8 % (15.3-44.8); MPV 9.6 fL (7.6-11.3); RBC Red Blood Cell Count 4.34 M/uL (4.33-5.43)
[2020-08-15 06:16] LABS: Potassium 4.4 mmol/L (3.5-5.1); Troponin I 0.05 ng/mL (0.0-0.045)
[2020-08-15] MEDS: INSULIN -REGULAR HUMAN 50 UNIT/0.5 ML ML SQ SCH ×2 (07:30→11:30)
[2020-08-15] MEDS: METFORMIN HCL 500 MG TAB PO SCH (08:00)
[2020-08-15 09:06] VITALS: BP 122/72; TEMP 96.9
[2020-08-15] MEDS: ARFORMOTEROL TARTRATE 15 MCG/2 ML VIAL.NEB NEB SCH (09:11)
[2020-08-15 10:19] LABS: White Blood Cell Scan OK (OK)
[2020-08-15 10:20] LABS: Blood Morphology Comment NOT SEEN (NOT SEEN); Platelet Estimate ADEQ
[2020-08-15] MEDS: ENOXAPARIN 40 MG/0.4 ML SQ SCH (10:38)
[2020-08-15] MEDS: LOSARTAN POTASSIUM 50 MG TABLET PO SCH (10:38)
[2020-08-15] MEDS: FUROSEMIDE 20 MG/ 2ML VIAL IV SCH (10:39)
[2020-08-15] MEDS: METHYLPREDNISOLONE 125 MG INJ IV SCH (10:39)
[2020-08-15] MEDS: TAMSULOSIN 0.4 MG SR CAP PO SCH (10:39)
--- NOTE | 2020-08-15 12:24 | P.PN ---
Subjective Date of Service: 08/15/20 Primary Care Provider: Dr. Duran Chief Complaint: COPD exacerbation Subjective: Improving (Patient is doing better oxygenation satisfactory recovery does declining steadily) Review of Systems Respiratory: Shortness of Breath Physical Examination - Vital Signs Temperature: 96.9 F Blood Pressure: 122/72 Pulse: 93 Respirations: 18 Pulse Ox (%): 95 - Physical Exam General: Alert, Oriented x3 Respiratory: Clear to auscultation bilaterally, Diminished Assessment & Plan - Problems (Diagnosis) (1) Respiratory failure Current Visit: Yes Status: Acute Plan: Patient is at doing better most likely he had a COPD exacerbation there is no evidence of thromboembolism echocardiogram shows diastolic dysfunction patient can be discharged home resume his home medications possible oxygen patient agreed to monitor his oxygen level anti and sat above 90% uses bronchodilator and follow with me in 2 weeks of also advise him to her request his primary care doctor at 2 order the CPAP machine Qualifiers: Chronicity: unspecified Physician Review: Patient Assessed, Agree with Above Assessment and Plan
--- NOTE | 2020-08-15 12:48 | P.DS ---
Admission Date: 08/14/20 Discharge Date: 08/15/20 Primary Care Provider: Dr. Duran Disposition: ROUTINE DISCHARGE Discharge Condition: FAIR Reason for Admission: COPD exacerbation Consultations: Pulmonary-Dr. 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 Diabetes mellitus complication status: with kidney complications Diabetes mellitus complication detail: with chronic kidney disease Chronic kidney disease stage: stage 2 (mild) Qualified Code(s): E11.22 - Type 2 diabetes mellitus with diabetic chronic kidney disease; N18.2 - Chronic kidney disease, stage 2 (mild) (5) HTN (hypertension) Current Visit: Yes Status: Acute Qualifiers: Hypertension type: essential hypertension Qualified Code(s): I10 - Essential (primary) hypertension (6) COPD exacerbation Onset Date: 07/06/16 Current Visit: No Status: Acute Brief History of Present Illness: 5 tissue gentleman with a history of asthma, hypertension, diabetes mellitus type 2, hyperlipidemia, been undiagnosed of stress sleep apnea not on CPAP, COPD was referred to the emergency department by Dr. Jackson for hypoxemia with oxygen saturation at 89% on room air in the office. Patient reported progressive shortness of breath increased swelling in his lower extremities. He reported occasional wheezing. He stated he quit smoking 3 years ago. EKG was unremarkable, initial troponin mildly elevated. BNP was 289. CT head thorax suggested mild pulmonary interstitial edema. Patient was hospitalized for further management of COPD exacerbation and CHF exacerbation with hypoxia. Hospital Course: Patient admitted to the medical floor. Troponin trended flat but mildly elevated indicating demand ischemia. Patient was treated with IV Lasix for diuresis. He was seen by pulmonary-Dr. Jackson also prescribed him scheduled bronchodilators and IV steroid. Patient clinically improved but he remained hypoxic. His oxygen saturation was 88% on room air at rest. Patient qualifies for home oxygen. He is discharged with home oxygen. His UA reported trichomoniasis. Patient is prescribed Flagyl to complete 7 days of treatment. He is prescribed bronchodilators and a tapering dose of oral prednisone for COPD exacerbation. Vital Signs/Physical Exam: Temp Pulse Resp BP Pulse Ox 96.9 F 93 H 18 122/72 95 08/15/20 12:24 08/15/20 12:24 08/15/20 12:24 08/15/20 12:24 08/15/20 12:24 General: Alert, In no apparent distress, Oriented x3, Obese HEENT: Mucous membr. moist/pink Neck: Supple, JVD not distended Respiratory: Clear to auscultation bilaterally, Diminished Cardiovascular: No edema, Regular rate/rhythm, Normal S1 S2 Gastrointestinal: Normal bowel sounds, Soft and benign, No tenderness Musculoskeletal: No swelling, No tenderness Integumentary: No rashes Neurological: Normal strength at 5/5 x4 extr Laboratory Data at Discharge: WBC 6.00 K/uL (4.3-10.9) 08/15/20 05:15 Hgb 12.0 g/dL (13.6-17.9) L 08/15/20 05:15 Hct 38.0 % (39.6-49.0) L 08/15/20 05:15 Plt Count 164 K/uL (152-406) 08/15/20 05:15 PT 11.8 SECONDS (9.5-12.5) 08/13/20 18:38 INR 1.03 08/13/20 18:38 Sodium 142 mmol/L (136-145) 08/15/20 05:15 Potassium 4.4 mmol/L (3.5-5.1) 08/15/20 05:15 BUN 23 mg/dL (7-18) H 08/15/20 05:15 Creatinine 1.21 mg/dL (0.55-1.3) 08/15/20 05:15 Glucose 233 mg/dL (74-106) H 08/15/20 05:15 Magnesium 2.0 mg/dL (1.8-2.4) 08/13/20 18:38 Total Bilirubin 0.5 mg/dL (0.2-1.0) 08/14/20 05:48 AST 14 U/L (15-37) L 08/14/20 05:48 ALT 24 U/L (12-78) 08/14/20 05:48 Alkaline Phosphatase 71 U/L (45-117) 08/14/20 05:48 Troponin I 0.05 ng/mL (0.0-0.045) H 08/15/20 05:15 Triglycerides 90 mg/dL (<150) 08/14/20 05:48 Cholesterol 131 mg/dL (<200) 08/14/20 05:48 HDL Cholesterol 33 mg/dL (40-60) L 08/14/20 05:48 Cholesterol/HDL Ratio 3.97 08/14/20 05:48 Home Medications: Albuterol Inhaler [Ventolin Inhaler*] 2 puff IH Q6HP PRN 08/14/20 Aspirin 81 mg PO DAILY 08/14/20 Atorvastatin Calcium 40 mg PO BEDTIME 08/14/20 Eszopiclone [Lunesta] 2 mg PO BEDTIME 08/14/20 Losartan Potassium [Cozaar] 100 mg PO DAILY 08/14/20 Metformin HCl 500 mg PO BIDWM 08/14/20 [place]-3/Dha/Epa/Fish Oil [Fish Oil EC 1,000 mg Softgel] 1,000 mg PO DAILY 08/14/20 Tamsulosin HCl 0.4 mg PO DAILY 08/14/20 Albuterol Neb [Proventil 0.083% Neb Soln] 2.5 mg NEB Q4H PRN #120 amp 08/15/20 Arformoterol Tartrate [Brovana] 15 mcg NEB BIDRESP #60 vial.neb 08/15/20 Budesonide [Pulmicort] 1 puff IH BID #60 amp 08/15/20 Furosemide [Lasix] 40 mg PO DAILY #30 tab 08/15/20 metroNIDAZOLE [Flagyl*] 500 mg PO BID #14 tablet 08/15/20 predniSONE [Deltasone*] 40 mg PO DAILY #30 tab 08/15/20 New Medications: Arformoterol Tartrate [Brovana] 15 mcg NEB BIDRESP #60 vial.neb predniSONE [Deltasone*] 40 mg PO DAILY #30 tab metroNIDAZOLE [Flagyl*] 500 mg PO BID #14 tablet Furosemide [Lasix] 40 mg PO DAILY #30 tab Albuterol Neb [Proventil 0.083% Neb Soln] 2.5 mg NEB Q4H PRN #120 amp PRN Reason: Shortness Of Breath Budesonide [Pulmicort] 1 puff IH BID #60 amp Diet: AHA Activity: Ad nicol Followup: Petros Jackson MD [Primary Care Provider] - (2 weeks) Time spent managing pt's care (in minutes): 38
[2020-08-15] MEDS ORDERED: metroNIDAZOLE 500 MG TABLET PO SCH (21:00)
--- NOTE | 2020-08-16 06:28 | PN ---
Date of Progress Note: 08/15/2020 Subjective: Mr. Painting is a 65-year-old with history of asthma, hypertension, diabetes, dyslipidemia, obstructive sleep apnea, who came into the hospital with hypoxia. He was seen by Dr. Jacobs on 08/04, thought to have a normal ejection fraction with diastolic dysfunction, elevated troponin that was borderline. The patient has diuresed well on Lasix 40 mg IV q.2 hours. Today on today on 08/15, he was feeling much better. His pressure was 122/72. His pulse was in sinus rhythm with occa sional PVCs at 90. Afebrile. His respiratory rate was 18. His last blood gases still showing hypox ia with a pO2 47, pCO2 of 60, pH is 7.36. His last creatinine is 1.21. Troponin had gone down from 0.07 to 0.05. This is definitely not consistent with an acute coronary syndrome. I agree with his p resent regimen. Echocardiogram showed an ejection fraction of 55% to 60%. I am comfortable Mr. Lyon s going home on his present regimen to include Lasix. We will see him in the office in the near futu re. He need to be set up for an outpatient Lexiscan. LATRICE/ARIL Voice ID: [id number] Report ID: [id number]
== END 2020-08-15 15:29 | disposition home or self-care (01) | DRG 291 ==
LOC: ER 17:09 → ERHOLD 21:02 → 2ND 22:33 → OBSVTOIN 08-14 14:58
PROVIDERS: ADMIT Internal Medicine; ATTEND Internal Medicine
PROC: 5A09457 Assistance with Respiratory Ventilation, 24-96 Consecutive Hours, Continuous Positive Airway Pressure (ICD-10-PCS; principal; 2020-08-14)
DX: I13.0 Hypertensive heart and chronic kidney disease with heart failure and stage 1 through stage 4 chronic kidney disease, or unspecified chronic kidney disease (principal); J96.01 Acute respiratory failure with hypoxia; I50.33 Acute on chronic diastolic (congestive) heart failure; J45.901 Unspecified asthma with (acute) exacerbation; J44.1 Chronic obstructive pulmonary disease with (acute) exacerbation; Z68.41 Body mass index [BMI] 40.0-44.9, adult; I24.8 Other forms of acute ischemic heart disease; N18.2 Chronic kidney disease, stage 2 (mild); E11.22 Type 2 diabetes mellitus with diabetic chronic kidney disease; I49.3 Ventricular premature depolarization; E66.01 Morbid (severe) obesity due to excess calories; E78.5 Hyperlipidemia, unspecified; G47.33 Obstructive sleep apnea (adult) (pediatric); Z87.891 Personal history of nicotine dependence; Z79.84 Long term (current) use of oral hypoglycemic drugs; Z79.52 Long term (current) use of systemic steroids; Z79.82 Long term (current) use of aspirin; Z91.14 Patient's other noncompliance with medication regimen; Z79.51 Long term (current) use of inhaled steroids; Z79.899 Other long term (current) drug therapy; Z20.822 Contact with and (suspected) exposure to COVID-19
CPT/HCPCS: 36415; 71045; 71046; 71275; 80048; 80053; 80061; 80076; 81003; 81015; 82805; 82947; 83036; 83735; 83880; 84439; 84443; 84484; 85025; 85610; 87086; 87088; 93005; 93306; 94640; 94660; 94760; 99285; G0378; J1650; J1940; J2930; J7605; Q9967; U0003

== ENCOUNTER → 2023-07-25 | Emergency (ER) | payer BC, OTHER, SELFPAY ==
[~2023-07-25] MED LIST: CEFEPIME 2 GM VIAL ONE; ETOMIDATE 20 MG/10 ML VIAL IV ONE; MIDAZOLAM HCL 0 ML ONE; NA CHLORIDE 0.9% 1,000 ML ONE; NA CHLORIDE 0.9% 100 ML ONE; NA CHLORIDE 0.9% 250 ML ONE; NOREPINEPHRINE BITARTRATE/D5W 4 MG/250 ML BAG IV ONE; ROCURONIUM 50 MG/5 ML VIAL IV ONE; VANCOMYCIN 1 GM/VIAL ONE; propofoL 1,000 MG/100 ML VIAL IV ONE
[2023-07-25 10:37] LABS: Absolute Lymphocytes (CBC) 0.8 K/uL (0.7-4.9); Hematocrit 27.7 % (39.6-49.0); Lymphocytes % 10.9 % (15.3-44.8); MCV 85.1 fL (80-100); MPV 9.2 fL (7.6-11.3); Platelets 151 thou/uL (152-406); RBC Red Blood Cell Count 3.25 M/uL (4.33-5.43)
[2023-07-25 10:40] LABS: Protime INR 1.18
[2023-07-25 11:09] LABS: Albumin 3.1 g/dL (3.4-5.0); Bilirubin Total 0.8 mg/dL (0.2-1.0); Potassium 4.6 mEq/L (3.5-5.1); Protein, Total 6.6 g/dL (6.4-8.2)
[2023-07-25 11:17] LABS: Arterial Blood Carboxyhemoglob 1.3 % (0-1.5); Blood Gas Oxyhemoglobin 95.3 % (94-97); Blood O2 Saturation 98.2 % (92-98.5)
--- NOTE | 2023-07-25 11:23 | RAD REPORT ---
EXAM DESCRIPTION: Deanna Single View07/25/2023 10:54 am CLINICAL HISTORY: Device placement endotracheal tube placement IMPRESSION: An endotracheal tube has been inserted with its tip at the level of the aortic arch. Nasogastric tube has been placed into the stomach Central venous line placed into the SVC. No pneumothorax
[2023-07-25 11:38] LABS: Specific Gravity 1.017 (1.005-1.030); Urine Bacteria <20 /HPF (<20); Urine Bilirubin NEGATIVE (Negative); Urine Blood Negative (Negative); Urine Clarity Extremely Turbid (Clear); Urine Color Yellow (Yellow); Urine Glucose NEGATIVE (Negative); Urine Protein 2+ (Negative); Urine RBC <5 /HPF (None Seen); Urine Urobilinogen Normal (Normal); Urine pH 5.5 (5.0-7.0)
[2023-07-25 11:51] LABS: Albumin 2.7 g/dL (3.4-5.0); Bilirubin Direct 0.3 mg/dL (0-0.2); Bilirubin Indirect, Calculated 0.5 mg/dL (0.2-0.8); Bilirubin Total 0.8 mg/dL (0.2-1.0); Potassium 4.3 mEq/L (3.5-5.1); Protein, Total 5.8 g/dL (6.4-8.2)
--- NOTE | 2023-07-25 11:52 | RAD REPORT ---
EXAM DESCRIPTION: CT - Head C Spine Cap Wo Con - 07/25/2023 11:37 am CLINICAL HISTORY: Remote ratio consciousness/confusion. Shortness of breath. Abdominal pain TECHNIQUE: Computed axial tomography of head, neck, chest, abdomen and pelvis obtained. IV and oral contrast not requested. Coronal and sagittal reconstruction performed. All CT scans are performed using dose optimization technique as appropriate and may include automated exposure control or mA/KV adjustment according to patient size. COMPARISON: CT 2016 and 2020 FINDINGS: An intracranial bleed is not seen. The ventricles are normal in caliber. An extra-axial fluid collection is not noted. No significant hypodensity within the right A cervical fracture is not seen. No dislocation is noted. Spondylosis cervical spine The evaluation of mediastinum, tiffanie, vessels, solid organs and bowel are limited secondary to the lac k of contrast administration. Endotracheal tube with its tip at the veronica. Nasogastric tube tip in the distal stomach. A mediastinal hematoma is not noted. Small to moderate loculated right pleural effusion. Right lower lobe opacities. The liver,spleen, pancreas, adrenals,kidneys and bladder do not demonstrate an acute traumatic injury A Lehman catheter within the bladder. Small amount of ascites. Postsurgical changes lumbar spine IMPRESSION: No acute intracranial abnormality is seen. A cervical fracture is not visualized. If the patient continues to have symptoms to suggest intracran ial/spinal cord pathology MRI be recommended Small to moderate loculated right pleural effusion. Right lower lobe opacities may indicate pneumonia Small amount ascites Endotracheal tube has its tip at the veronica
[2023-07-25 11:54] LABS: Troponin High Sensitivity 87.2 pg/mL (<58.9)
--- NOTE | 2023-07-25 11:59 | ER ---
Nurse's Notes [facility] Name: Noe Painting Age: 68 yrs Sex: Male : 1955 Arrival Date: 07/25/2023 Time: 10:00 Bed 4 Private MD: Diagnosis: Hypercarbic respiratory failure;Altered mental status;Septic shock;Community-acquired pneumonia;Loculated pleural effusion Presentation: 07/25 10:00 Chief complaint: EMS states: RESPIRATORY DISTRESS. Coronavirus screen: UNABLE TO db OBTAIN. Ebola Screen: Unable to complete the Ebola screening because: Patient is unresponsive. Initial Sepsis Screen: Does the patient meet any 2 criteria? Altered Mental Status. No. Patient's initial sepsis screen is negative. Does the patient have a suspected source of infection? No. Patient's initial sepsis screen is negative. Risk Assessment: Do you want to hurt yourself or someone else? Unable to obtain. Onset of symptoms was July 25, 2023. Care prior to arrival: Oxygen administered. via a nebulizer mask. 10:00 Method Of Arrival: EMS: [facility] db 10:00 Acuity: LENIN 1 db Triage Assessment: 10:00 General: Appears distressed, Behavior is unresponsive. Pain: Unable to use pain scale. db Patient is unresponsive. Neuro: Level of Consciousness is unresponsive, Oriented to none. 10:00 Respiratory: Airway is patent Respiratory effort is labored, Respiratory pattern is. db Historical: - Allergies: 10:31 No Known Allergies; db - PMHx: 10:31 Asthma; Diabetes - NIDDM; Hypertension; db - Immunization history:: Adult Immunizations unknown. - Social history:: Smoking status: unknown. - Family history:: not pertinent. Screenin:42 [facility] ED Fall Risk Assessment (Adult) Confusion or Disorientation Yes (5 pts) db Score/Fall Risk Level 3 or more points = High Risk. Abuse screen: UNABLE TO OBTAIN. Nutritional screening: UNABLE TO OBTAIN. Tuberculosis screening: UNABLE TO OBTAIN. Assessment: 10:03 Reassessment: CODE CALLED. PT UNRESPONSIVE. PULSE 59. INTUBATION SETUP. db 10:06 Reassessment: IV ACCESS OBTAINED 22G R WRIST. db 10:08 Reassessment: MEDICATION FOR INTUBATION. 150 MG ROCURONIUM. AND 20 MG ETOMIDATE BP db 85/57, HR 65, BVM SPO2 100%. 10:10 Reassessment: PT INTUBATED BY DR. CASTELLANOS 25 AT TEETH. BREATH SOUNDS PRESENT. BP db 80/49, HR 62. 10:15 Reassessment: LEVO 5 MCG/MIN STARTED PER DR. CASTELLANOS. db 10:30 Reassessment: CENTRAL LINE LEFT IJ PLACED BY DR. DENNIS Critical care time db stopped, patient has stabilized. 12:00 Reassessment: REPORT FROM JOSE ATKINS. 67 YO BM P/W UNRESPONSIVE RESP DISTRESS. bp 13:00 Reassessment: TRANSFER INITIATED. VENT AC 22, TV 460, PEEP 5, FIO2 60. bp 15:03 Reassessment: REPORT TO THEA ATKINS AT [facility] ICU RM 210. bp 15:42 Reassessment: EMS AT /S FOR TRANSPORT. FAMILY INFORMED BY PHONE OF [facility] bp TRANSFER. Vital Signs: 10:00 BP 140 / 120; Pulse 59; Resp 10; Pulse Ox 97% on Nebulizer Mask; db 10:00 BP 140 / 120; Pulse 65; Resp 12; Pulse Ox 74% on R/A; db 10:08 BP 85 / 57; Pulse 65; Pulse Ox 100% on BVM; db 10:10 BP 80 / 49; Pulse 62; db 10:13 BP 68 / 46; Pulse 60; Resp 15; Pulse Ox 99% on ETT ambu; db 10:18 BP 63 / 42; Pulse 59; Resp 14; db 10:20 BP 72 / 47; Pulse 65; db 10:25 BP 75 / 50; Pulse 68; Resp 13; Pulse Ox 100% ; db 10:30 BP 80 / 54; Pulse 67; db 10:35 BP 90 / 65; Pulse 71; Resp 16; Pulse Ox 100% on ETT vent; db 11:26 Weight 140.16 kg; ph 12:07 BP 123 / 79; Pulse 65; Resp 22; Temp 95.2(Ca); Pulse Ox 100% on ETT vent; FiO2 60 %; ph 12:30 BP 131 / 80; Pulse 64; Resp 22; Temp 95.2; Pulse Ox 100% ; Weight 154.22 kg; bp 12:45 BP 133 / 84; Pulse 63; Resp 22; Temp 95.3; Pulse Ox 100% ; bp 13:00 BP 139 / 81; Pulse 62; Resp 16; Temp 95.4; Pulse Ox 100% ; bp 13:15 BP 139 / 77; Pulse 58; Resp 22; Temp 95.5; Pulse Ox 100% ; bp 13:30 BP 136 / 84; Pulse 61; Resp 21; Temp 95.7; Pulse Ox 100% ; bp 13:45 BP 129 / 81; Pulse 65; Resp 20; Temp 95.8; Pulse Ox 100% ; bp 14:00 BP 139 / 79; Pulse 68; Resp 22; Temp 96.1; Pulse Ox 100% ; bp 14:15 BP 133 / 86; Pulse 66; Resp 22; Temp 96.2; Pulse Ox 100% ; bp 14:30 BP 134 / 84; Pulse 61; Resp 22; Temp 96.4; Pulse Ox 100% ; bp 14:45 BP 133 / 82; Pulse 64; Resp 22; Temp 96.2; Pulse Ox 100% ; bp 15:00 BP 133 / 83; Pulse 64; Resp 20; Temp 96.4; Pulse Ox 100% ; bp 15:15 BP 128 / 72; Pulse 63; Resp 22; Temp 97.1; Pulse Ox 100% ; bp 15:30 BP 128 / 77; Pulse 64; Resp 20; Temp 97.4; Pulse Ox 100% ; bp ED Course: 10:00 Arm band placed on Patient placed in an exam room. db 10:03 Patient arrived in ED. bd 10:06 Inserted saline lock: 22 gauge in right wrist, using aseptic technique. Blood collected.db 10:10 Assisted provider with central line placement. Set up central line tray. Triple lumen ph line placed in left internal jugular. Line placed by Rob Castellanos MD Placement verified by CXR, blood return, Dressed with Tegaderm, Blood was collected. Patient tolerated well. Before procedure, did Practitioner(s) obtain informed consent? No. Patient \T\ family education about procedure, CLABSI prevention and S/S of infection? No. Time-out/Briefing performed prior to start of procedure? Yes. Was handwashing/sanitizing done immediately prior to procedure? Yes. Was patient positioned to in a way to prevent air embolism? Yes. Was procedure site sterilized? Yes, with chlorhexidine. Was the site allowed to dry? Yes. Was local anesthetic and/or sedation utilized? Yes. During the procedure, did the Practitioner(s) maintain a sterile field? Yes. Were unused ports clamped during insertion? Yes. Was a 2nd qualified MD obtained after 3 unsuccessful insertion attempts? N/A. Was blood aspirated from each lumen? Yes. After the procedure, did the Practitioner(s) clean the site and apply a sterile dressing? Yes. 10:24 Valuables watch taken by security to be locked up.. bd 10:25 NGT: inserted 16 Fr. other OG. db 10:30 Accessed CENTRAL LINE IN LEFT SUBCLAVIAN. db 10:31 Triage completed. db 10:35 Lehman cath inserted, using sterile technique, 16 Fr., by ED staff, balloon inflated, to db gravity drainage, urine specimen collected. 10:38 Rob Castellanos MD is Attending Physician. rt 10:40 Yudi Cyr, MILLY is Primary Nurse. ph 10:56 Chest Single View XRAY In Process Unspecified. EDMS 11:38 CT Traumagram (Head C Spine CAP wo con) In Process Unspecified. EDMS 11:59 Patient transferred, IV remains in place. ph 12:11 initiated transfer to [facility]. bd 14:31 pt accepted in transfer to [facility] icu rm [address]aryam irizarry,admin bd approval given by Gladys Okeefe. Administered Medications: 10:00 Drug: NS 0.9% IV 1000 ml IV at 1 bolus Per protocol; 1000 mL bolus Route: IV; Rate: 1 ph bolus; Site: right wrist; 12:22 Follow up: IV Status: Completed infusion; IV Intake: 1000ml bp 10:08 Drug: Rocuronium IVP 150 mg IVP once Route: IVP; Site: right wrist; ph 12:22 Follow up: Response: No adverse reaction bp 10:08 Drug: Etomidate IVP 20 mg IVP once Route: IVP; Site: left jugular; ph 12:22 Follow up: Response: No adverse reaction bp 10:15 Drug: Norepinephrine IV 0.1 mcg/kg/min IV at calculated rate See Administration ph Instructions; (Standard concentration 4 mg / 250 mL D5W); Recommended max rate 3 mcg/kg/min; Titrate 0.05 mcg/kg/min as often as every 5 minutes to achieve goal (see titration policy); Goal parameter MAP greater than 65 mmHg. Route: IV; Rate: calculated rate; Site: right wrist; 15:43 Follow up: IV Status: Infusion continued upon transfer bp 11:53 Drug: Cefepime IVPB 2 grams IVPB at 200 ml/hr once over 30 mins; (mix in NS 100 mL) ph Route: IVPB; Rate: 200 ml/hr; Infused Over: 30 mins; Site: left jugular; 12:21 Follow up: IV Status: Completed infusion; IV Intake: 100ml bp 12:21 Drug: vancoMYCIN IVPB 1 grams IVPB once over 2 hrs Route: IVPB; Infused Over: 2 hrs; bp Site: right jugular; 15:43 Follow up: IV Status: Completed infusion; IV Intake: 250ml bp 12:21 Drug: NS 0.9% IV 1000 ml IV at 1 bolus Per protocol; 1000 mL bolus Route: IV; Rate: 1 bp bolus; Site: right jugular; 15:43 Follow up: IV Status: Completed infusion; IV Intake: 1000ml bp 13:38 Drug: Propofol IV 5 mcg/kg/min IV at calculated rate See Administration Instructions; bp Standard concentration 1000 mg / 100 mL; Recommended max rate 50 mcg/kg/min; Titrate 2 mcg/kg/min every 5 minutes to achieve goal (see titration policy); Goal parameter RASS score 0 to -2 Route: IV; Rate: calculated rate; Site: left jugular; 15:43 Follow up: IV Status: Infusion continued upon transfer bp Medication: 12:00 VIS not applicable for this client. ph Intake: 12:21 IV: 100ml; Total: 100ml. bp 12:22 IV: 1000ml; Total: 1100ml. bp 15:43 IV: 250ml; Total: 1350ml. bp 15:43 IV: 1000ml; Total: 2350ml. bp Outcome: 11:59 ER care complete, transfer ordered by . rt 15:44 Transferred by ground EMS to [facility], Transfer form completed. bp 15:44 Condition: stable 15:44 Instructed on the need for transfer, 16:27 Patient left the ED. bp Signatures: Dispatcher [employer] EDMS Cathi Canales Patricia, RN RN Michael Parish, MILLY RN Rdaha Crhistianson, RN RN Rob Kolb MD MD rt Corrections: (The following items were deleted from the chart) 10:40 10:08 Reassessment: PT INTUBATED BY DR. CASTELLANOS 25 AT TEETH db db 11:53 11:53 Norepinephrine IV 14.016 mcg/min IV at calculated rate in right wrist ph ph
--- NOTE | 2023-07-25 11:59 | EDPHYS ---
Physician Documentation [facility] Name: Noe Painting Age: 68 yrs Sex: Male : 1955 Arrival Date: 07/25/2023 Time: 10:00 Bed 4 Private MD: ED Physician Rob Wilkinson HPI: 07/25 11:12 This 68 yrs old Black Male presents to ER via EMS with complaints of Unresponsive, rt Respiratory Distress. 11:12 History limited due to patient with altered mental status. Patient was reportedly found rt by his family to be poorly responsive with respiratory distress. Unclear how long this has been present for.ems the patient was hypoxic. No further history could be obtained, symptoms are severe in severity. Historical: - Allergies: : No Known Allergies; db - PMHx: : Asthma; Diabetes - NIDDM; Hypertension; db - Immunization history:: Adult Immunizations unknown. - Social history:: Smoking status: unknown. - Family history:: not pertinent. ROS: 11:12 Unable to obtain ROS due to altered mental status, rt Exam: 11:12 Head/Face: Normocephalic, atraumatic. rt 11:12 Cardiovascular: Regular rate and rhythm with a normal S1 and S2. No gallops, murmurs, or rubs. Normal PMI, no JVD. No pulse deficits. Abdomen/GI: Soft, non-tender, with normal bowel sounds. No distension or tympany. No guarding or rebound. No evidence of tenderness throughout. Skin: Warm, dry with normal turgor. Normal color with no rashes, no lesions, and no evidence of cellulitis. 11:12 Constitutional: The patient appears Altered mental status, GCS 3 11:12 Eyes: Pupils constricted, midline. 11:12 Respiratory: Crackles heard on all lung hawkins, severe respiratory distress, 11:12 Neuro: GCS 3, 11:12 ECG was reviewed by the Attending Physician. rt Vital Signs: 10:00 BP 140 / 120; Pulse 59; Resp 10; Pulse Ox 97% on Nebulizer Mask; db 10:00 BP 140 / 120; Pulse 65; Resp 12; Pulse Ox 74% on R/A; db 10:08 BP 85 / 57; Pulse 65; Pulse Ox 100% on BVM; db 10:10 BP 80 / 49; Pulse 62; db 10:13 BP 68 / 46; Pulse 60; Resp 15; Pulse Ox 99% on ETT ambu; db 10:18 BP 63 / 42; Pulse 59; Resp 14; db 10:20 BP 72 / 47; Pulse 65; db 10:25 BP 75 / 50; Pulse 68; Resp 13; Pulse Ox 100% ; db 10:30 BP 80 / 54; Pulse 67; db 10:35 BP 90 / 65; Pulse 71; Resp 16; Pulse Ox 100% on ETT vent; db 11:26 Weight 140.16 kg; ph 12:07 BP 123 / 79; Pulse 65; Resp 22; Temp 95.2(Ca); Pulse Ox 100% on ETT vent; FiO2 60 %; ph 12:30 BP 131 / 80; Pulse 64; Resp 22; Temp 95.2; Pulse Ox 100% ; Weight 154.22 kg; bp 12:45 BP 133 / 84; Pulse 63; Resp 22; Temp 95.3; Pulse Ox 100% ; bp 13:00 BP 139 / 81; Pulse 62; Resp 16; Temp 95.4; Pulse Ox 100% ; bp 13:15 BP 139 / 77; Pulse 58; Resp 22; Temp 95.5; Pulse Ox 100% ; bp 13:30 BP 136 / 84; Pulse 61; Resp 21; Temp 95.7; Pulse Ox 100% ; bp 13:45 BP 129 / 81; Pulse 65; Resp 20; Temp 95.8; Pulse Ox 100% ; bp 14:00 BP 139 / 79; Pulse 68; Resp 22; Temp 96.1; Pulse Ox 100% ; bp 14:15 BP 133 / 86; Pulse 66; Resp 22; Temp 96.2; Pulse Ox 100% ; bp 14:30 BP 134 / 84; Pulse 61; Resp 22; Temp 96.4; Pulse Ox 100% ; bp 14:45 BP 133 / 82; Pulse 64; Resp 22; Temp 96.2; Pulse Ox 100% ; bp 15:00 BP 133 / 83; Pulse 64; Resp 20; Temp 96.4; Pulse Ox 100% ; bp 15:15 BP 128 / 72; Pulse 63; Resp 22; Temp 97.1; Pulse Ox 100% ; bp 15:30 BP 128 / 77; Pulse 64; Resp 20; Temp 97.4; Pulse Ox 100% ; bp Procedures: 14:22 Intubation: Intubated orally using GlideScope with 7.5 mm ETT. was successful on first rt attempt. Ventilated with ventilator. Tube secured with ETT xiao Placement verified by CXR, CO2 detector with (+) color change, auscultating bilateral breath sounds, O2 saturation after procedure was 100 %. Patient tolerated well. Central Line: the site was prepped with Chlorhexidine, a triple lumen catheter was inserted, in the left internal jugular vein, in 1 attempts. placement was verified, by CXR, by blood return, the site was dressed with Chlorhexidine impregnated, the patient tolerated the procedure, well. MDM: 10:38 Patient medically screened. rt 17:45 Differential Diagnosis Sepsis, COPD, respiratory failure. Data reviewed: vital signs, rt nurses notes, lab test result(s), EKG, radiologic studies. Consideration of Admission/Observation Escalation of care including admission/observation considered. Patient requires transfer due to loculated pleural effusion. Management of patient was discussed with the following: Home Staging Specialist: Discussed with accepting risk control specialist. I considered the following discharge prescriptions or medication management in the emergency department Medications were administered in the Emergency Department. See MAR. Independent interpretation of the following test(s) in the Emergency Department CT Scan: My interpretation is No pneumothorax seen on interpretation of CT scan images. Care significantly affected by the following chronic conditions: Diabetes, Hypertension. Counseling: I had a detailed discussion with the patient and/or guardian regarding. Response to treatment: the patient's symptoms have markedly improved after treatment. 07/25 10:20 Order name: Blood Culture Adult (2) db 07/25 10:20 Order name: CBC with Diff; Complete Time: 10:44 db 07/25 10:20 Order name: CMP; Complete Time: 11:22 db 07/25 10:20 Order name: Lactate w/ 2H reflex if indic.; Complete Time: 11:48 db 07/25 10:20 Order name: Protime (+inr); Complete Time: 10:44 db 07/25 10:20 Order name: Ptt, Activated; Complete Time: 10:44 db 07/25 10:38 Order name: Basic Metabolic Panel; Complete Time: 11:58 rt 07/25 10:38 Order name: LFT's; Complete Time: 11:58 rt 07/25 10:38 Order name: Magnesium; Complete Time: 11:58 rt 07/25 10:38 Order name: NT PRO-BNP; Complete Time: 11:58 rt 07/25 10:38 Order name: Troponin HS; Complete Time: 11:58 rt 07/25 10:39 Order name: Type And Screen; Complete Time: 12:10 rt 07/25 10:39 Order name: ABG; Complete Time: 15:57 rt 07/25 10:44 Order name: CPK; Complete Time: 11:48 rt 07/25 10:58 Order name: UAM; Complete Time: 11:48 ll1 07/25 12:06 Order name: SARS RAPID; Complete Time: 13:12 bd 07/25 12:16 Order name: ABO/RH no charge; Complete Time: 12:29 EDMS 07/25 10:11 Order name: Chest Single View XRAY; Complete Time: 11:32 em1 07/25 10:39 Order name: CT Traumagram (Head C Spine CAP wo con); Complete Time: 11:58 rt 07/25 10:20 Order name: EKG; Complete Time: 10:20 db 07/25 10:20 Order name: Accucheck; Complete Time: 11:53 db 07/25 10:20 Order name: Cardiac monitoring; Complete Time: 11:53 db 07/25 10:20 Order name: EKG - Nurse/Tech; Complete Time: 11:53 db 07/25 10:20 Order name: IV Saline Lock - Large Bore; Complete Time: 11:53 db 07/25 10:20 Order name: Labs collected and sent; Complete Time: 11:53 db 07/25 10:20 Order name: O2 Per Protocol; Complete Time: 11:53 db 07/25 10:20 Order name: O2 Sat Monitoring; Complete Time: 11:54 db 07/25 10:20 Order name: Vital Signs; Complete Time: 11:54 db 07/25 10:38 Order name: IV Saline Lock; Complete Time: 11:53 rt EC:12 Rate is 69 beats/min. Rhythm is regular, Normal Sinus Rhythm with PACs, Right bundle rt branch block. FL interval is normal. QT interval is normal. No Q waves. No ST changes noted. Administered Medications: 10:00 Drug: NS 0.9% IV 1000 ml IV at 1 bolus Per protocol; 1000 mL bolus Route: IV; Rate: 1 ph bolus; Site: right wrist; 12:22 Follow up: IV Status: Completed infusion; IV Intake: 1000ml bp 10:08 Drug: Rocuronium IVP 150 mg IVP once Route: IVP; Site: right wrist; ph 12:22 Follow up: Response: No adverse reaction bp 10:08 Drug: Etomidate IVP 20 mg IVP once Route: IVP; Site: left jugular; ph 12:22 Follow up: Response: No adverse reaction bp 10:15 Drug: Norepinephrine IV 0.1 mcg/kg/min IV at calculated rate See Administration ph Instructions; (Standard concentration 4 mg / 250 mL D5W); Recommended max rate 3 mcg/kg/min; Titrate 0.05 mcg/kg/min as often as every 5 minutes to achieve goal (see titration policy); Goal parameter MAP greater than 65 mmHg. Route: IV; Rate: calculated rate; Site: right wrist; 15:43 Follow up: IV Status: Infusion continued upon transfer bp 11:53 Drug: Cefepime IVPB 2 grams IVPB at 200 ml/hr once over 30 mins; (mix in NS 100 mL) ph Route: IVPB; Rate: 200 ml/hr; Infused Over: 30 mins; Site: left jugular; 12:21 Follow up: IV Status: Completed infusion; IV Intake: 100ml bp 12:21 Drug: vancoMYCIN IVPB 1 grams IVPB once over 2 hrs Route: IVPB; Infused Over: 2 hrs; bp Site: right jugular; 15:43 Follow up: IV Status: Completed infusion; IV Intake: 250ml bp 12:21 Drug: NS 0.9% IV 1000 ml IV at 1 bolus Per protocol; 1000 mL bolus Route: IV; Rate: 1 bp bolus; Site: right jugular; 15:43 Follow up: IV Status: Completed infusion; IV Intake: 1000ml bp 13:38 Drug: Propofol IV 5 mcg/kg/min IV at calculated rate See Administration Instructions; bp Standard concentration 1000 mg / 100 mL; Recommended max rate 50 mcg/kg/min; Titrate 2 mcg/kg/min every 5 minutes to achieve goal (see titration policy); Goal parameter RASS score 0 to -2 Route: IV; Rate: calculated rate; Site: left jugular; 15:43 Follow up: IV Status: Infusion continued upon transfer bp Disposition Summary: 07/25/23 11:59 Transfer Ordered Notes: Transfer Location: [facility] rt Reason: Higher level of care rt Condition: Critical rt Problem: new rt Symptoms: have improved rt Accepting Physician: (07/25/23 16:27) bp Diagnosis - Hypercarbic respiratory failure rt - Altered mental status rt - Septic shock rt - Community-acquired pneumonia rt - Loculated pleural effusion rt Forms: - Medication Reconciliation Form rt - SBAR form rt Critical care time excluding procedures: 17:45 Critical care time: Bedside Care: 40 minutes, Consultation: 10 minutes. Total time: 50 rt minutes Signatures: Dispatcher [employer] EDYudi Villagomez RN RN ph Michael Landers RN RN bp Radha Sevilla RN RN db Rob Wilkinson MD MD rt Corrections: (The following items were deleted from the chart) 16:27 11:59 rt bp
[2023-07-25 12:48] LABS: SARS-CoV-2 Antigen Rapid Res Negative (Negative)
[2023-07-25 16:34] VITALS: O2SAT 100
[2023-07-25 16:59] VITALS: BP 128/77; TEMP 97.4
== END ==
LOC: ER 10:00
PROC: 0BH17EZ Insertion of Endotracheal Airway into Trachea, Via Natural or Artificial Opening (ICD-10-PCS; principal; 2023-07-25)
PROC: 05HN33Z Insertion of Infusion Device into Left Internal Jugular Vein, Percutaneous Approach (ICD-10-PCS; 2023-07-25)
DX: J96.92 Respiratory failure, unspecified with hypercapnia (principal); J18.9 Pneumonia, unspecified organism; R65.21 Severe sepsis with septic shock; J91.8 Pleural effusion in other conditions classified elsewhere; I10 Essential (primary) hypertension; Z11.52 Encounter for screening for COVID-19
CPT/HCPCS: 87040 ×2; 85025; 81001; 80048; 36415; 86900; 83735; 86850; 82550; 87205 ×2; 85610; 86901; 80076; 83605; 85730; 84484; 80053; 83880; 70450; 71250; 72125; 71045; 82805; 87811; 36600; 94002; 31500; 36556; J2704; J0692; J7050; J7030; 93005; J2250

== ENCOUNTER 2023-10-17 20:13 | Emergency (ER) | payer OTHER ==
--- NOTE | 2023-10-17 21:09 | RAD REPORT ---
EXAM DESCRIPTION: RAD - Chest Single View - 10/17/2023 9:01 pm CLINICAL HISTORY: CHEST PAIN COMPARISON: <Comparisons> FINDINGS: Lines: None. Lungs: No evidence of edema or pneumonia. Pleural: No significant pleural effusions or pneumothorax. Cardiac: Cardiomegaly. Mediastinum: Within normal limits. Bones: No acute fractures. Other: None IMPRESSION: No acute cardiopulmonary disease.
[2023-10-17 21:20] LABS: Absolute Eosinophils 0.1 K/uL (0-0.5); Absolute Lymphocytes (CBC) 1.2 K/uL (0.7-4.9); Absolute Monocytes 1.1 K/uL (0.1-1.3); Absolute Neutrophil 6.3 K/uL (1.8-8.0); Basophils % 0.4 % (0-1.3); Eosinophils % 0.7 % (0-4.4); Hematocrit 36.2 % (39.6-49.0); Hemoglobin 11.8 g/dL (13.6-17.9); Lymphocytes % 13.4 % (15.3-44.8); MCH 27.5 pg (27.0-35.0); MCHC 32.7 g/dL (32.0-36.0); MCV 84.1 fL (80-100); MPV 8.9 fL (7.6-11.3); Monocytes % 12.9 % (3.3-12.3); Neutrophils % 72.6 % (41.7-73.7); Nucleated Red Blood Cells % 0.1 % (0-0); PT Prothrombin Time 16.3 SECONDS (9.5-12.5); Platelets 233 thou/uL (152-406); Protime INR 1.5; Red Cell Distribution Width 18.5 % (12.1-15.2)
[2023-10-17 21:36] LABS: Albumin 4.2 g/dL (3.4-5.0); Albumin/Globulin Ratio 1.1 (1.1-1.8); Anion Gap 11.6 mEq/L (5.0-15.0); Bilirubin Direct 0.2 mg/dL (0-0.2); Bilirubin Indirect, Calculated 0.4 mg/dL (0.2-0.8); Bilirubin Total 0.6 mg/dL (0.2-1.0); Globulin 3.8 g/dL (2.3-3.5); Magnesium 2.4 mg/dL (1.6-2.4); Potassium 3.6 mEq/L (3.5-5.1); Troponin High Sensitivity 40.6 pg/mL (<58.9)
--- NOTE | 2023-10-18 00:12 | EDPHYS ---
Physician Documentation [facility] Name: Noe Painting Age: 68 yrs Sex: Male : 1955 Arrival Date: 10/17/2023 Time: 20:13 Bed 16 Private MD: ED Physician Sohail Carrasco HPI: 10/16 20:20 This 68 yrs old Black Male presents to ER via Unassigned with complaints of Abnormal sp4 EKG, Chest Pain. 22:58 68-year-old presents with chest pressure secondary to stress starting after stressful sp4 day at work. Patient's medications include glipizide, Farxiga, Aldactone, apixaban, Xanax, Lasix, Coreg, amiodarone. . 10/17 00:19 Patient is a very pleasant 68-year-old black male who presents from [facility] with sp4 complaint of chest discomfort. Is complaining of moderate chest discomfort that has occurred after a stressful day at work. Patient has had a EKG that has revealed normal sinus rhythm with a right bundle branch block at the CLINIC. Patient is receiving advice from the clinic doctor to come to the emergency room for evaluation of chest pain. . Historical: - Allergies: 10/16 20:30 No Known Allergies; tl4 - PMHx: 20:30 Asthma; Diabetes - NIDDM; Hypertension; Chronic obstructive lung disease; tl4 - Immunization history:: Adult Immunizations unknown. - Infectious Disease History:: Denies. - Social history:: Smoking status: Patient/guardian denies using tobacco, the patient reports quitting approximately 5 years ago. - Family history:: not pertinent. ROS: 10/17 00:19 Constitutional: Negative for fever, chills, and weight loss, positive for chest sp4 pressure All other systems are negative, Exam: 00:19 Constitutional: This is a well developed, well nourished patient who is awake, alert, sp4 and in no acute distress. Head/Face: Normocephalic, atraumatic. Eyes: Pupils equal round and reactive to light, extra-ocular motions intact. Lids and lashes normal. Conjunctiva and sclera are not injected. Cornea within normal limits. Periorbital areas with no swelling, redness, or edema. ENT: Nares patent. No nasal discharge, no septal abnormalities noted. Tympanic membranes are normal and external auditory canals are clear. Oropharynx with no redness, swelling, or masses, exudates, or evidence of obstruction, uvula midline. Mucous membranes moist. Neck: Trachea midline, no thyromegaly or masses palpated, and no cervical lymphadenopathy. Supple, full range of motion without nuchal rigidity, or vertebral point tenderness. Chest/axilla: Normal chest wall appearance and motion. Nontender with no deformity. No lesions are appreciated. Cardiovascular: Regular rate and rhythm with a normal S1 and S2. No gallops, murmurs, or rubs. Normal PMI, no JVD. No pulse deficits. Respiratory: Lungs have equal breath sounds bilaterally, clear to auscultation and percussion. No rales, rhonchi or wheezes noted. No increased work of breathing, no retractions or nasal flaring. Abdomen/GI: Soft, with normal bowel sounds. No distension or tympany. No guarding or rebound. No evidence of tenderness throughout. Back: No spinal tenderness. No costovertebral tenderness. Skin: Warm, dry with normal turgor. Normal color with no rashes, no lesions, and no evidence of cellulitis. MS/ Extremity: Pulses equal, no cyanosis. Neurovascular intact. Full, normal range of motion. Neuro: Awake and alert, GCS 15, oriented to person, place, time, and situation. Cranial nerves II-XII grossly intact. Motor strength 5/5 in all extremities. Sensory grossly intact. Psych: Awake, alert, with orientation to person, place and time. Behavior, mood, and affect are within normal limits 00:19 ECG was reviewed by the Attending Physician. EKG at 2027 normal sinus rhythm at the rate of 84, right bundle branch block. Otherwise normal Vital Signs: 10/16 20:27 BP 111 / 83; Pulse 86; Resp 16; Temp 97.7(TE); Pulse Ox 98% on R/A; Weight 112.04 kg; tl4 Height 5 ft. 10 in. ; Pain 6/10; 21:30 BP 116 / 79; Pulse 82; Resp 16; Pulse Ox 99% ; pf1 22:30 BP 115 / 81; Pulse 71; Resp 16; Pulse Ox 97% on R/A; Pain 0/10; pf1 23:30 BP 111 / 75; Pulse 80; Resp 16; Pulse Ox 100% on R/A; Pain 0/10; pf1 10/17 00:20 BP 112 / 73; Pulse 70; Resp 16; Temp 98; Pulse Ox 100% on R/A; Pain 0/10; pf1 10/16 20:27 Body Mass Index 35.44 (112.04 kg, 177.8 cm) tl4 10/16 20:27 Pain Scale: Adult tl4 22:30 Pain Scale: Adult pf1 23:30 Pain Scale: Adult pf1 10/17 00:20 Pain Scale: Adult pf1 MDM: 10/16 20:20 Patient medically screened. sp4 10/17 00:27 HEART Score: History: Slightly Suspicious (0), ECG: Non specific repolarization sp4 disturbance / LBTB / PM (1), Age: > or = 65 years (2), Risk Factors: > or = 3 Risk factors for atherosclerotic disease (2), Troponin: < or = 1 x Normal Limit (0), Total Score = 5. The patient was given aspirin in the Emergency Department. Data reviewed: vital signs, nurses notes, old medical records, lab test result(s), EKG, radiologic studies, plain films. ED course: Workup today is unremarkable. Patient has history of chronic kidney disease. Troponin x 2 is negative. Patient stable for discharge home. Advised to follow-up with [facility] cardiology, also his primary care physician Dr. Li . 00:29 ED course: EXAM DESCRIPTION: RAD - Chest Single View - 10/17/2023 9:01 pm CLINICAL sp4 HISTORY: CHEST PAIN COMPARISON: FINDINGS: Lines: None. Lungs: No evidence of edema or pneumonia. Pleural: No significant pleural effusions or pneumothorax. Cardiac: Cardiomegaly. Mediastinum: Within normal limits. Bones: No acute fractures. Other: None IMPRESSION: No acute cardiopulmonary disease.. 10/16 20:20 Order name: Basic Metabolic Panel; Complete Time: 21:46 sp4 10/16 20:20 Order name: CBC with Diff; Complete Time: 21:46 sp4 10/16 20:20 Order name: LFT's; Complete Time: 21:46 sp4 10/16 20:20 Order name: Magnesium; Complete Time: 21:46 sp4 10/16 20:20 Order name: NT PRO-BNP; Complete Time: 21:46 sp4 10/16 20:20 Order name: PT-INR; Complete Time: 21:46 [facility] 10/16 20:20 Order name: Troponin HS; Complete Time: 21:46 [facility] 10/16 21:48 Order name: Troponin High Sensitivity: Collect at 22:30 ; Complete Time: 00:11 [facility] 10/16 20:20 Order name: XRAY Chest (1 view); Complete Time: 21:46 [facility] 10/16 20:20 Order name: Cardiac monitoring; Complete Time: 20:46 [facility] 10/16 20:20 Order name: EKG - Nurse/Tech; Complete Time: 20:46 [facility] 10/16 20:20 Order name: IV Saline Lock; Complete Time: 21:52 [facility] 10/16 20:20 Order name: Labs collected and sent; Complete Time: :52 [facility] 10/16 20:20 Order name: O2 Per Protocol; Complete Time: 20:46 [facility] 10/16 20:20 Order name: O2 Sat Monitoring; Complete Time: 20:46 4 EC:19 Rate is 84 beats/min. Rhythm is regular, Normal Sinus Rhythm. QRS [place] is Normal. CT sp4 interval is normal. QRS interval is prolonged. QT interval is normal. No Q waves. T waves are Normal. No ST changes noted. Clinical impression: No evidence of ischemia. Interpreted by me. Reviewed by me. Administered Medications: No medications were administered Disposition Summary: 10/18/23 00:12 Discharge Ordered Notes: Continue all home medications. Location: Home sp4 Problem: new sp4 Symptoms: have improved sp4 Condition: Stable sp4 Diagnosis - Chest pain, unspecified sp4 Followup: sp4 - With: Isidro Li DO - When: 7 - 10 days - Reason: Recheck today's complaints Discharge Instructions: - Discharge Summary Sheet pf1 - Nonspecific Chest Pain, Adult, [id number] sp4 Forms: - Patient Portal Instructions sp4 Signatures: Dispatcher [employer] Sohail Johnson MD MD sp4 LogdaDavid glass RN RN tl4 Corrections: (The following items were deleted from the chart) 10/16 20:21 20:21 BASIC METABOLIC PANEL+C.LAB.BRZ ordered. EDMS EDMS 20:21 20:21 CBC+H.LAB.BRZ ordered. EDMS EDMS 20:21 20:21 HEPATIC FUNCTION+C.LAB.BRZ ordered. EDMS EDMS 20:21 20:21 MAGNESIUM+C.LAB.BRZ ordered. EDMS EDMS 20:21 20:21 PROBNP+C.LAB.BRZ ordered. EDMS EDMS 20:21 20:21 PROTIME (+INR)+COAG.LAB.BRZ ordered. EDMS EDMS 20:21 20:21 Troponin High Sensitivity+C.LAB.BRZ ordered. EDMS EDMS 20:21 20:21 Chest Single View+RAD.RAD.BRZ ordered. EDMS EDMS
--- NOTE | 2023-10-18 00:12 | ER ---
Nurse's Notes [facility] Name: Noe Painting Age: 68 yrs Sex: Male : 1955 Arrival Date: 10/17/2023 Time: 20: Bed 16 Private MD: Diagnosis: Chest pain, unspecified Presentation: 10/16 20:27 Chief complaint: Patient states: Pt c/o non-radiating, non-reproducible midsternal tl4 chest pressure since noon today. Pt had EKG done and was sent here by physician due to 'abnormal EKG' showing RBBB. Pt denies any associated symptoms. Coronavirus screen: At this time, the client does not indicate any symptoms associated with coronavirus-19. Ebola Screen: No symptoms or risks identified at this time. Initial Sepsis Screen: Does the patient meet any 2 criteria? No. Patient's initial sepsis screen is negative. Does the patient have a suspected source of infection? No. Patient's initial sepsis screen is negative. Risk Assessment: Do you want to hurt yourself or someone else? Patient reports no desire to harm self or others. Onset of symptoms was October 17, 2023 at 12:00. 20:27 Method Of Arrival: Ambulatory tl4 20:27 Acuity: LENIN 2 tl4 Triage Assessment: 20:30 General: Appears in no apparent distress. Behavior is calm, cooperative. Pain: tl4 Complains of pain in chest. EENT: No signs and/or symptoms were reported regarding the EENT system. Neuro: Level of Consciousness is awake, alert, obeys commands, Oriented to person, place, time, situation, Moves all extremities. Full function Gait is steady, Speech is normal. Cardiovascular: Reports chest pain, Denies diaphoresis, lightheadedness, nausea, palpitations, shortness of breath, syncope, Capillary refill < 3 seconds Patient's skin is warm and dry. Respiratory: Airway is patent Respiratory effort is even, unlabored, Respiratory pattern is regular, symmetrical. Historical: - Allergies: 20:30 No Known Allergies; tl4 - PMHx: 20:30 Asthma; Diabetes - NIDDM; Hypertension; Chronic obstructive lung disease; tl4 - Immunization history:: Adult Immunizations unknown. - Infectious Disease History:: Denies. - Social history:: Smoking status: Patient/guardian denies using tobacco, the patient reports quitting approximately 5 years ago. - Family history:: not pertinent. Screenin:47 [facility] ED Fall Risk Assessment (Adult) History of falling in the last 3 months, pf1 including since admission No falls in past 3 months (0 pts) Confusion or Disorientation No (0 pts) Intoxicated or Sedated No (0 pts) Impaired Gait No (0 pts) Mobility Assist Device Used No (0 pt) Altered Elimination No (0 pt) Score/Fall Risk Level 0 - 2 = Low Risk Oriented to surroundings, Maintained a safe environment, Educated pt \T\ family on fall prevention, incl call for assistance when getting out of bed, Assessed \T\ reinforced patient's understanding of fall precautions, Provided non-skid footwear, Hourly rounding (assess needs \T\ fall precautionary measures) done, Used ambulatory aids as needed (educated on \T\ assisted with), Used gait belt as appropriate. Abuse screen: Denies threats or abuse. Nutritional screening: No deficits noted. Tuberculosis screening: No symptoms or risk factors identified. Assessment: 20:20 General: Appears in no apparent distress. comfortable, well groomed, well developed, pf1 Behavior is calm, cooperative, appropriate for age, quiet. 20:20 Pain: Complains of pain in chest Pain does not radiate. Pain currently is 5 out of 10 pf1 on a pain scale. Quality of pain is described as dull, Pain began 1200 today. Neuro: No deficits noted. Level of Consciousness is awake, alert, obeys commands, Oriented to person, place, time, situation. Cardiovascular: Reports chest pain, Capillary refill < 3 seconds Patient's skin is warm and dry. Chest pain began 1200. Respiratory: No deficits noted. Airway is patent Respiratory effort is even, unlabored, Respiratory pattern is regular, symmetrical, Breath sounds are clear bilaterally. GI: No deficits noted. No signs and/or symptoms were reported involving the gastrointestinal system. Abdomen is round non-distended. : No deficits noted. No signs and/or symptoms were reported regarding the genitourinary system. EENT: No deficits noted. No signs and/or symptoms were reported regarding the EENT system. Derm: No deficits noted. No signs and/or symptoms reported regarding the dermatologic system. Musculoskeletal: No deficits noted. No signs and/or symptoms reported regarding the musculoskeletal system. Circulation, motion, and sensation intact. Capillary refill < 3 seconds, Range of motion: intact in all extremities. 21:30 Reassessment: Patient appears in no apparent distress at this time. Patient and/or pf1 family updated on plan of care and expected duration. Pain level reassessed. Patient is alert, oriented x 3, equal unlabored respirations, skin warm/dry/pink. Patient states symptoms have improved. 22:30 Reassessment: Patient appears in no apparent distress at this time. Patient and/or pf1 family updated on plan of care and expected duration. Pain level reassessed. Patient is alert, oriented x 3, equal unlabored respirations, skin warm/dry/pink. 23:30 Reassessment: Patient appears in no apparent distress at this time. Patient and/or pf1 family updated on plan of care and expected duration. Pain level reassessed. Patient is alert, oriented x 3, equal unlabored respirations, skin warm/dry/pink. Patient states symptoms have improved. 10/17 00:20 Reassessment: Patient appears in no apparent distress at this time. Patient and/or pf1 family updated on plan of care and expected duration. Pain level reassessed. Patient is alert, oriented x 3, equal unlabored respirations, skin warm/dry/pink. Patient states symptoms have improved. Vital Signs: 10/16 20:27 BP 111 / 83; Pulse 86; Resp 16; Temp 97.7(TE); Pulse Ox 98% on R/A; Weight 112.04 kg; tl4 Height 5 ft. 10 in. ; Pain 6/10; 21:30 BP 116 / 79; Pulse 82; Resp 16; Pulse Ox 99% ; pf1 22:30 BP 115 / 81; Pulse 71; Resp 16; Pulse Ox 97% on R/A; Pain 0/10; pf1 23:30 BP 111 / 75; Pulse 80; Resp 16; Pulse Ox 100% on R/A; Pain 0/10; pf1 10/17 00:20 BP 112 / 73; Pulse 70; Resp 16; Temp 98; Pulse Ox 100% on R/A; Pain 0/10; pf1 10/16 20:27 Body Mass Index 35.44 (112.04 kg, 177.8 cm) tl4 10/16 20:27 Pain Scale: Adult tl4 22:30 Pain Scale: Adult pf1 23:30 Pain Scale: Adult pf1 10/17 00:20 Pain Scale: Adult pf1 ED Course: 10/16 20:15 Patient arrived in ED. mr 20:20 Sohail Carrasco MD is Attending Physician. sp4 20:25 O2 via room air. pf1 20:29 Triage completed. tl4 20:31 Arm band placed on right wrist. tl4 20:31 Door closed. Noise minimized. Moved to private room. Warm blanket given. Pillow given. pf1 20:35 Client placed on continuous cardiac and pulse oximetry monitoring. NIBP monitoring pf1 applied. pvc monitor on. 20:35 Patient has correct armband on for positive identification. Placed in gown. Bed in low pf1 position. Call light in reach. Side rails up X 1. 20:35 No provider procedures requiring assistance completed. EKG done, by ED staff, reviewed pf1 by Sohail Carrasco MD. 20:50 Initial lab(s) drawn, by ED staff, sent to lab. pf1 20:54 Inserted saline lock: 20 gauge in right antecubital area, using aseptic technique. oe Blood collected. 21:03 XRAY Chest (1 view) In Process Unspecified. EDMI 10/17 00:12 Isidro Li DO is Referral Physician. sp4 00:21 IV discontinued, intact, bleeding controlled, No redness/swelling at site. Pressure pf1 dressing applied. 00:22 Provided Education on: follow up. pf1 Administered Medications: No medications were administered Medication: 00:22 VIS not applicable for this client. pf1 Outcome: 00:12 Discharge ordered by . sp4 00:21 Discharged to home via wheelchair, pf1 00:21 Condition: stable 00:21 Discharge instructions given to patient, Instructed on discharge instructions, follow up and referral plans. Demonstrated understanding of instructions, follow-up care, 00:22 Patient left the ED. pf1 Signatures: Dispatcher [employer] EDMI Lynette Raines, Grant Reg Bart Rangel oe Scarlet Carroll, MILLY RN pf1 Sohail Carrasco MD MD sp4 David Raza RN RN tl4 Corrections: (The following items were deleted from the chart) 10/16 20:53 20:47 General: Appears pf1 pf1
[2023-10-18 00:40] VITALS: BP 111/83; TEMP 97.7; O2SAT 98
--- NOTE | 2023-10-18 10:59 | EKG ---
Test Date: 2023-10-17 Test Time: 20:28:58 Special Events Manager: DEVANG MEASUREMENT RESULTS: Intervals: Rate: 84 IL: 166 QRSD: 158 QT: 418 QTc: 493 [place]: P: 59 [place]: 166 QRS: 266 T: 61 INTERPRETIVE STATEMENTS: Normal sinus rhythm Right bundle branch block Abnormal ECG Compared to ECG 07/25/2023 10:46:02 Atrial premature complex(es) no longer present Myocardial infarct finding no longer present Electronically Signed On 10-18-23 10:58:47 CDT by Anthony Moreno
== END 2023-10-18 00:22 | disposition home or self-care (01) ==
LOC: ER 20:13
DX: R07.9 Chest pain, unspecified (principal); I10 Essential (primary) hypertension; J44.9 Chronic obstructive pulmonary disease, unspecified
CPT/HCPCS: 36415; 71045; 80048; 80076; 83735; 83880; 84484; 85025; 85610; 93005; 99285